=== PATIENT | female | born 1980 | race Caucasian/White ===

== ENCOUNTER 2016-07-06 21:31 | Emergency (ER) | payer OTHER ==
[2016-07-06 21:45] VITALS: BP 150/103; TEMP 97.4; BMI 57.4
[2016-07-06] MEDS ORDERED: DEMEROL 50 MG/ML SYRINGE IM STA (21:57)
[2016-07-06] MEDS ORDERED: ZOFRAN 4 MG/2 ML IM STA (21:57)
[2016-07-06 21:59] LABS: ADD URINE MICROSCOPIC NO; BILIRUBIN,URINE Negative (NEGATIVE); KETONES,URINE Negative (NEGATIVE); LEUKOCYTE ESTERASE ,URINE Negative (NEGATIVE); NITRITE,URINE Negative (NEGATIVE); PROTEIN,URINE Negative (NEGATIVE); URINE PREGNANCY INTERNAL QC INTERNAL QC VALID; URINE, BLOOD Negative (NEGATIVE)
[2016-07-06] MEDS ORDERED: PHENERGAN 25 MG/ML VIAL IM STA (21:59)
--- NOTE | 2016-07-06 21:59 | ED.PDOC ---
General ED Provider: Dr. ADRIENNE KIM Chief Complaint: Abdominal Pain Stated Complaint: Been hurting in right lower belly, nausea, vomited too, has h/ o ovarian cyst. Time Seen by Physician: 21:57 Mode of Arrival: Walk-In Information Source: Patient Nursing and Triage Documentation Reviewed and Agree: Yes GI Complaint Exam - Abdominal Pain Complaint/Exam Onset: Gradual Symptoms Are: Still present Timing: Constant Initial Severity: Moderate Current Severity: Severe Location of Pain: RLQ Character: Reports: Aching, Throbbing Alleviating: Reports: None Associated Signs and Symptoms: Reports: Nausea, Vomiting. Denies: Diaphoresis, Fever, Cough, Chest pain, Dizziness, Back pain, Constipation, Blood in stool, Dysuria, Urinary frequency, Decreased urine output, Decreased appetite, Vaginal bleeding, Vaginal discharge, Diarrhea, Sore throat, Decreased activity Related History: Reports: Similar episode [employer] History: Reports: Ovarian cyst AAA Risk Factors: Reports: None Cardiac Risk Factors: Reports: None Ectopic Risk Factors: Reports: None Ovarian Torsion Risk Factors: Reports: None Surgical Obstruction Risk Factors: Reports: None Related Surgical History: Reports: None Abdominal Findings: Absent: Pulsatile mass, Abdominal distention, Unequal femoral pulses, Rebound tenderness Differential Diagnoses: Renal Colic, Ureteral Stone, Ovarian Cyst Review of Systems - Review Of Systems Constitutional: Reports: No symptoms Eyes: Reports: No symptoms Ears, Nose, Mouth, Throat: Reports: No symptoms Respiratory: Reports: No symptoms Cardiac: Reports: No symptoms GI: Reports: Abdominal pain, Vomiting : Reports: No symptoms Musculoskeletal: Reports: No symptoms Skin: Reports: No symptoms Neurological: Reports: No symptoms Endocrine: Reports: No symptoms Hematologic/Lymphatic: Reports: No symptoms All Other Systems: Reviewed and Negative Past Medical History - Past Medical History Previously Healthy: Yes Endocrine: Reports: None, Other (syncope hypoglycemia vertigo nausea) Cardiovascular: Reports: Hypertension, Unknown (hypoglycemia vertigo nausea), Other (loop recorder placed; syncope ) Respiratory: Reports: Asthma Hematological: Reports: None Gastrointestinal: Reports: None, Pancreatitis Genitourinary: Reports: Kidney stones (9 LITHOTRIPSIES ) Neuro/Psych: Reports: Migraine, Seizure, Anxiety, Depression, Bipolar Disorder Musculoskeletal: Reports: Back Pain Cancer: Reports: None Last Menstrual Period: JUN 23-2016 Other Pertinent Past Medical History: BREAST REDUCTION/THROAT SWELLING WITH MORPHINE ABLE TO TAKE DEMEROL STADOL - Surgical History General Surgical History: Reports: Tubal ligation, Appendectomy, Cholecystectomy , Tonsillectomy, Adenoidectomy, Other (9 LITHOTRIPSIES, BREAST REDUCTION) - Family History Family History: Reports: Unknown - Social History Smoking Status: Current every day smoker, Light tobacco smoker Smoking Cessation Counseling Time: > 3 min - 10 min Hx Substance Use: No Alcohol Screening: None - Immunizations Tetanus Shot up to Date: No Physical Exam - Physical Exam Appearance: Ill-appearing, Obese Pain Distress: Moderate Eyes: JACEK, EOMI, Conjunctiva clear ENT: Ears normal, Nose normal, Oropharynx normal Respiratory: Airway patent, Breath sounds clear, Breath sounds equal, Respirations nonlabored Cardiovascular: RRR, Pulses normal, No rub, No murmur GI/: Soft, Tender Musculoskeletal: Normal strength, ROM intact, No edema, No calf tenderness Skin: Warm, Dry, Normal color Neurological: Sensation intact, Motor intact, Reflexes intact, Cranial nerves intact, Alert, Oriented Psychiatric: Affect appropriate, Mood appropriate Interpretation - Radiology Interpretation Radiology Interpretation By: Radiologist Radiology Results: Positive Exam Interpreted: CT Scan Critical Care Note - Critical Care Note Total Time (mins): 0 Course - Course Orders, Labs, Meds: Lab Review 07/06/16 21:55 Urine Color Yellow Urine Clarity Clear Urine pH 5.0 Ur Specific Trezevant >=1.030 Urine Protein Negative Urine Glucose (UA) 1+ Urine Ketones Negative Urine Blood Negative Urine Nitrite Negative Urine Bilirubin Negative Urine Urobilinogen 0.2 Ur Leukocyte Esterase Negative Urine Test Negative Orders Category Date Time Status URINALYSIS C & S IF INDICATED Stat LAB 07/06/16 21:55 Completed URINE Stat LAB 07/06/16 21:55 Completed Meperidine HCl/Pf [Demerol 50 mg/ml Syringe] MEDS 07/06/16 21:57 Discontinued 50 mg IM ONCE STA Promethazine HCl [Phenergan 25 mg/ml Vial] MEDS 07/06/16 21:59 Discontinued 25 mg IM ONCE STA CT ABDOMEN/PELVIS WO CONTRAST Stat RADS 07/06/16 21:49 Completed Medications Discontinued Medications Generic Name Dose Route Start Last Admin Trade Name Freq PRN Reason Stop Dose Admin Meperidine HCl 50 mg 07/06/16 21:57 07/06/16 22:09 Demerol 50 Mg/Ml Syringe IM 07/06/16 21:58 50 mg ONCE STA Administration Promethazine HCl 25 mg 07/06/16 21:59 07/06/16 22:08 Phenergan 25 Mg/Ml Vial IM 07/06/16 22:00 25 mg ONCE STA Administration Vital Signs: Temp Pulse Resp BP Pulse Ox 07/06/16 21:32 97.4 F L 107 H 24 150/103 H 95 Departure - Departure Time of Disposition: 22:31 Disposition: HOME SELF-CARE Discharge Problem: Abdominal pain, Renal colic on right side Instructions: Renal Colic (ED) Condition: Stable Pt referred to PMD for follow-up: Yes Additional Instructions: INCREASE HYDRATION Continue taking pain medication Allergies/Adverse Reactions: Allergies venom-honey bee [bee venom (honey bee)] Allergy (Severe, Verified 05/29/16 19:57 ) throat swelling venom-wasp [wasp venom] Allergy (Severe, Verified 05/29/16 19:57) throat swelling Iodinated Contrast Media - Oral and [Iodinated Contrast Media - IV Dye] Adverse Reaction (Mild, Verified 07/06/16 21:41) SKIN REDDENED dihydroergotamine Adverse Reaction (Verified 05/29/16 19:57) ketorolac tromethamine [From Toradol] Adverse Reaction (Verified 05/29/16 19:57) morphine Adverse Reaction (Verified 05/29/16 19:57) ondansetron HCl [From Zofran] Adverse Reaction (Verified 05/29/16 19:57) sumatriptan [From Imitrex] Adverse Reaction (Verified 05/29/16 19:57) sumatriptan succinate [From Imitrex] Adverse Reaction (Verified 05/29/16 19:57) onions Allergy (Severe, Uncoded 05/29/16 19:57) swelling of throat Pt notified to get medical alert necklace Home Medications: Ambulatory Orders Pregabalin [Lyrica] 150 mg PO TID 12/07/12 Albuterol Sulfate [Proair Hfa] 2 puff IH Q6H PRN 06/09/14 Buspirone HCl 15 mg PO BID 09/19/14 Fluoxetine HCl [Prozac] 40 mg PO DAILY 09/19/14 Baclofen 10 mg PO TID 07/23/15 Clonazepam [Klonopin] 1 mg PO TID 10/01/15 Oxcarbazepine [Trileptal] 600 mg PO BID 12/23/15 Oxycodone HCl [Oxycodone] 5 mg PO QID 12/23/15 Chlorpromazine HCl [Thorazine] 25 mg PO BEDTIME 01/13/16 Diphenhydramine HCl [Benadryl Allergy] 25 mg PO BEDTIME 01/13/16 Promethazine HCl [Phenergan Tab] 25 mg PO BEDTIME 01/13/16 Disposition Discussed With: Patient, Family
--- NOTE | 2016-07-06 22:29 | CT ---
EXAM: CT of the abdomen and pelvis without contrast. HISTORY: Right lower quadrant pain. PROCEDURE: Contiguous axial CT images of the abdomen and pelvis without contrast with coronal and s agittal reformats. FINDINGS: The liver is normal in appearance. The gallbladder is surgically absent. The pancreas, spleen, adrenal glands and left kidney are normal in appearance. There is a 0.7 cm nonobstructive c alcification in the right kidney. No ureterolithiasis or hydronephrosis. The abdominal aorta is wi thin normal limits in diameter. There are surgical sutures along the margin of the cecum and the a ppendix is not visualized consistent with appendectomy. The other visualized loops of bowel are norm al in appearance. No free fluid or free air in the abdomen or pelvis. The bladder is decompressed. There are bilateral fallopian tube occlusion devices. There is a small umbilical hernia containing only fat. There are degenerative changes in the spine. Impression: Nonobstructive right nephrolithiasis as described. No ureterolithiasis or hydronephros is. Cholecystectomy. Appendectomy. Bilateral fallopian tube occlusion devices. Small umbilical hernia as described.
[2016-07-06] MEDS ORDERED: DILAUDID 2 MG/ML SYRINGE IM STA (22:36)
== END 2016-07-06 23:17 | disposition home or self-care (01) ==
LOC: ED 21:31
DX: N23 Unspecified renal colic (principal); R10.31 Right lower quadrant pain; R11.2 Nausea with vomiting, unspecified; I10 Essential (primary) hypertension; Z87.442 Personal history of urinary calculi; F17.210 Nicotine dependence, cigarettes, uncomplicated; Z79.899 Other long term (current) drug therapy
CPT/HCPCS: 81001; 81025; 96372; 99283

== ENCOUNTER 2016-07-12 21:38 | Emergency (ER) | payer OTHER ==
[2016-07-12 21:41] VITALS: BMI 57.4
[2016-07-12 21:53] VITALS: BP 145/96; TEMP 97.5
[2016-07-12] MEDS ORDERED: SODIUM CHLORIDE 1,000 ML IV STA (21:57)
[2016-07-12] MEDS ORDERED: DILAUDID 1 MG/ML SYRINGE IVP STA ×2 (21:59→23:24)
[2016-07-12] MEDS ORDERED: PHENERGAN 25 MG/ML VIAL 25 MG in SODIUM CHLORIDE 50 ML IV STA (21:59)
[2016-07-12] MEDS ORDERED: PHENERGAN 25 MG/ML VIAL ONE (22:21)
--- NOTE | 2016-07-12 22:55 | CT ---
EXAM: CT head without contrast HISTORY: Knot on right side of head for 1 month with mild headache and pain to the touch of this are a. COMPARISON: CT 03/24/2016 and numerous priors. TECHNIQUE: Serial axial images of the brain were obtained from the skull base to the vertex without IV contrast. FINDINGS: The ventricles, cisterns and sulci are unchanged. The segundo-white matter junction is stab le in comparison to prior. No midline shift or mass is identified. There is no abnormal intra or e xtra-axial fluid collection. The paranasal sinuses redemonstrate nodular low attenuation soft tissu e in the left maxillary sinus and minimal mucosal thickening in the right maxillary sinus. The tanesha ining paranasal sinuses and the mastoid air cells are clear. The osseous calvarium demonstrates a s mall nodular density of the calvarium unchanged from prior exam as seen on image 18. No additional right-sided nodular density is identified. IMPRESSION: 1. No new or acute intracranial abnormality or hemorrhage. There is a small nodular area of the ri ght calvarium superior and posterior to the right ear which has been present since prior examination and is unchanged. No additional nodule is identified. 2. Paranasal sinus mucosal thickening may represent sinusitis versus mucous retention cyst
--- NOTE | 2016-07-12 23:27 | ED.PDOC ---
General ED Provider: Dr. ESME BAUTISTA-ER Chief Complaint: Non-specific Complaint Stated Complaint: ALVARO GOT A HEADACHE--I THINK IT STEMS FROM THIS NOT ON MY SCALP Time Seen by Physician: 21:45 Mode of Arrival: Walk-In Information Source: Patient Exam Limitations: No limitations [facility] Nursing and Triage Documentation Reviewed and Agree: Yes Neurological Complaint Exam - Headache Complaint/Exam Onset: Gradual Duration: several days Symptoms Are: Still present Timing: Constant Episodes Lasting: Days Worst Headache Ever: No Initial Severity: Mild Current Severity: Moderate Location: Right Character: Reports: Dull, Throbbing, Pressure Aggravating: Reports: None Alleviating: Reports: None Associated Signs and Symptoms: Reports: Nausea, Vomiting. Denies: Dizziness, Seizure, Sinus pressure, Fever, Neck pain, Neck stiffness, Decreased LOC, Visual changes Related History: Reports: Similar episode. Denies: Recent trauma, Remote trauma Related Surgical History: Reports: None SAH Risk Factors: Reports: None Meningitis Risk Factors: Reports: None SDH Risk Factors: Reports: None Temporal Arteritis Risk Factors: Reports: Female Normal Head CT Within Last 12 Months: Yes Fundoscopic Exam: Present: Normal Findings Papilledema Present: No Temporal Artery Tenderness: Present: None Sinus Tenderness: Present: None TMJ Tenderness: Present: None Glascow Coma Scale (see protocol): 15 Meningeal Signs Positive: No Pain on Passive Flexion-Positive Kernig's: No ROM Limited In: No Limitiations Focal Weakness: Present: None Focal Sensory Loss: Present: None Gait: Normal Nystagmus Present: No Gag Reflex Present: Yes [id number]: Normal Findings Romberg Test Positive: No Babinski Sign: Negative Right, Negative Left Heel to Toe Normal: Yes Differential Diagnoses: Subdural Hematoma, Sinus Headache Review of Systems - Review Of Systems Constitutional: Reports: No symptoms Eyes: Reports: No symptoms Ears, Nose, Mouth, Throat: Reports: No symptoms Respiratory: Reports: No symptoms Cardiac: Reports: No symptoms GI: Reports: No symptoms : Reports: No symptoms Musculoskeletal: Reports: No symptoms Skin: Reports: No symptoms Neurological: Reports: Headache Endocrine: Reports: No symptoms Hematologic/Lymphatic: Reports: No symptoms All Other Systems: Reviewed and Negative Past Medical History - Past Medical History Previously Healthy: Yes Endocrine: Reports: None, Other (syncope hypoglycemia vertigo nausea) Cardiovascular: Reports: Hypertension, Unknown (hypoglycemia vertigo nausea), Other (loop recorder placed; syncope ) Respiratory: Reports: Asthma Hematological: Reports: None Gastrointestinal: Reports: None, Pancreatitis Genitourinary: Reports: Kidney stones (9 LITHOTRIPSIES ) Neuro/Psych: Reports: Migraine, Seizure, Anxiety, Depression, Bipolar Disorder Musculoskeletal: Reports: Back Pain Cancer: Reports: None Last Menstrual Period: JUN 23 2016 Other Pertinent Past Medical History: BREAST REDUCTION/THROAT SWELLING WITH MORPHINE ABLE TO TAKE DEMEROL STADOL - Surgical History General Surgical History: Reports: Tubal ligation, Appendectomy, Cholecystectomy , Tonsillectomy, Adenoidectomy, Other (9 LITHOTRIPSIES, BREAST REDUCTION) - Family History Family History: Reports: Unknown - Social History Smoking Status: Current every day smoker, Light tobacco smoker Hx Substance Use: No Alcohol Screening: None Lives: With family - Immunizations Tetanus Shot up to Date: No Physical Exam - Physical Exam Appearance: Well-appearing, No pain distress, Well-nourished Eyes: JACEK, EOMI, Conjunctiva clear ENT: Ears normal, Nose normal, Oropharynx normal Neck: Supple Respiratory: Airway patent Cardiovascular: RRR, Pulses normal, No rub, No murmur GI/: Soft, Nontender, No masses, Bowel sounds normal, No Organomegaly Musculoskeletal: Normal strength, ROM intact, No edema, No calf tenderness Skin: Warm, Dry, Normal color Neurological: Sensation intact, Motor intact, Reflexes intact, Cranial nerves intact, Alert, Oriented Psychiatric: Affect appropriate, Mood appropriate Interpretation - Radiology Interpretation Radiology Interpretation By: Radiologist Radiology Results: Negative ("no change") Exam Interpreted: CT Scan Re-Evaluation - Re-Evaluation Time of Re-Evaluation: 23:29 Status: Improved Vital Signs Stable: Yes Pain Level: 0 Appearance: NAD Lungs: Clear Skin: Warm and Dry Neuro: Alert and Oriented X3 CV: RRR Critical Care Note - Critical Care Note Total Time (mins): 0 Course - Course Orders, Labs, Meds: Orders Category Date Time Status ED IV/MEDIPORT/POWERPORT .ONCE EMERGENCY 07/12/16 21:57 Active 0.9 % Sodium Chloride [Saline Flush] MEDS 07/12/16 21:57 Ordered 1 syr IVF PRN PRN Hydromorphone HCl [Dilaudid 1 mg/ml Syringe] MEDS 07/12/16 21:59 Discontinued 1 mg IVP ONCE STA Hydromorphone HCl [Dilaudid 1 mg/ml Syringe] MEDS 07/12/16 23:24 Stat 1 mg IVP ONCE STA Promethazine HCl [Phenergan 25 mg/ml Vial] MEDS 07/12/16 22:21 Discontinued 25 mg .ROUTE .STK-MED ONE Promethazine HCl [Phenergan 25 mg/ml Vial] 25 mg MEDS 07/12/16 21:59 Discontinued 0.9 % Sodium Chloride [Sodium Chloride] 50 ml IV ONCE Sodium Chloride 0.9% [Sodium Chloride] 1,000 ml MEDS 07/12/16 21:[address] HEAD W/O CONTRAST Stat RADS 07/12/16 21:58 Completed Medications Generic Name Dose Route Start Last Admin Trade Name Freq PRN Reason Stop Dose Admin Sodium Chloride 1 syr 07/12/16 21:57 Saline Flush IVF PRN PRN To flush IV Discontinued Medications Generic Name Dose Route Start Last Admin Trade Name Freq PRN Reason Stop Dose Admin Hydromorphone HCl 1 mg 07/12/16 21:59 07/12/16 22:39 Dilaudid 1 Mg/Ml Syringe IVP 07/12/16 22:00 1 mg ONCE STA Administration Sodium Chloride 1,000 mls @ 1,000 mls/hr 07/12/16 21:57 07/12/16 22:40 Sodium Chloride IV 07/12/16 22:56 1,000 mls/hr BOLUS STA Administration Promethazine HCl 25 mg/ Sodium 51 mls @ 75 mls/hr 07/12/16 21:59 07/12/16 22: 39 Chloride IV 07/12/16 22:39 75 mls/hr ONCE STA Administration Vital Signs: Temp Pulse Resp BP Pulse Ox 07/12/16 21:41 97.5 F L 110 H 24 145/96 H 94 L Departure - Departure Time of Disposition: 23:29 Disposition: HOME SELF-CARE Discharge Problem: Lesion of skin of scalp Headache Qualifiers: Headache type: unspecified Headache chronicity pattern: acute headache Intractability: not intractable Qualifier Code: (R51) Headache Instructions: Tension Headache (ED), Acute Headache (ED) Condition: Good Pt referred to PMD for follow-up: Yes Additional Instructions: talk to your pcp about surgical referral to remove scalp mass Allergies/Adverse Reactions: Allergies venom-honey bee [bee venom (honey bee)] Allergy (Severe, Verified 07/12/16 21:51 ) throat swelling venom-wasp [wasp venom] Allergy (Severe, Verified 07/12/16 21:51) throat swelling Iodinated Contrast Media - Oral and [Iodinated Contrast Media - IV Dye] Adverse Reaction (Mild, Verified 07/12/16 21:51) SKIN REDDENED dihydroergotamine Adverse Reaction (Verified 07/12/16 21:51) ketorolac tromethamine [From Toradol] Adverse Reaction (Verified 07/12/16 21:51) morphine Adverse Reaction (Verified 07/12/16 21:51) ondansetron HCl [From Zofran] Adverse Reaction (Verified 07/12/16 21:51) sumatriptan [From Imitrex] Adverse Reaction (Verified 07/12/16 21:51) sumatriptan succinate [From Imitrex] Adverse Reaction (Verified 07/12/16 21:51) onions Allergy (Severe, Uncoded 07/12/16 21:51) swelling of throat Pt notified to get medical alert necklace Home Medications: Ambulatory Orders Pregabalin [Lyrica] 150 mg PO TID 12/07/12 Albuterol Sulfate [Proair Hfa] 2 puff IH Q6H PRN 06/09/14 Buspirone HCl 15 mg PO BID 09/19/14 Fluoxetine HCl [Prozac] 40 mg PO DAILY 09/19/14 Baclofen 10 mg PO TID 07/23/15 Clonazepam [Klonopin] 1 mg PO TID 10/01/15 Oxcarbazepine [Trileptal] 600 mg PO BID 12/23/15 Oxycodone HCl [Oxycodone] 5 mg PO QID 12/23/15 Chlorpromazine HCl [Thorazine] 25 mg PO BEDTIME 01/13/16 Diphenhydramine HCl [Benadryl Allergy] 25 mg PO BEDTIME 01/13/16 Promethazine HCl [Phenergan Tab] 25 mg PO BEDTIME 01/13/16 Disposition Discussed With: Patient, Family
== END 2016-07-13 00:34 | disposition home or self-care (01) ==
LOC: ED 21:38
DX: R51 Headache (principal); L98.9 Disorder of the skin and subcutaneous tissue, unspecified; R11.2 Nausea with vomiting, unspecified; I10 Essential (primary) hypertension; F17.210 Nicotine dependence, cigarettes, uncomplicated; Z79.899 Other long term (current) drug therapy
CPT/HCPCS: 96361; 96365; 96375; 96376; 99283

== ENCOUNTER 2016-07-27 | Emergency (ER) ==
[2016-07-27] MEDS ORDERED: ZOFRAN 4 MG/2 ML IVP STA (00:25)
[2016-07-27] MEDS ORDERED: SODIUM CHLORIDE 1,000 ML IV STA (00:25)
--- NOTE | 2016-07-27 00:30 | ED.PDOC ---
General ED Provider: Dr. FESTUS BLISS Chief Complaint: Seizure Stated Complaint: patient is a 36 year female who has a history of seizures who comes to the ER after she had a seizure break Through falling and hitting her head. She does not remember the seizure. The who is with her now did not wittness it. she states she follows with a Neurologist and her Trilptil was recently doubled. she get seizuire breathrough twice a week. Time Seen by Physician: 00:30 Mode of Arrival: Wheelchair Information Source: Patient, Family Exam Limitations: Other (Postital ) Nursing and Triage Documentation Reviewed and Agree: Yes Neurological Complaint Exam - Seizure Complaint/Exam Onset/Duration: 1 hour ago Symptoms Are: Resolved Single or Multiple Episode: single Failed to Regain Consciousness: No Severity: Self-limited Character: Generalized Aggravating: Denies: Alcohol ingestion, Drug ingestion, Alcohol withdrawal, Drug withdrawal, Fever, Trauma, Sleep deprivation, Medication non-compliance, Photic stimulation, Breath-holding Alleviating: Reports: Spontaneous resolution Associated Signs and Symptoms: Reports: Vomiting Related History: Reports: Similar episode SAH Risk Factors: Reports: None Meningitis Risk Factors: Reports: None SDH Risk Factors: Reports: None Related Surgical History: Reports: None Active Seizure: Other (not witnessed tonight ) Cephalohematoma Present: No Tongue Bitten: No Neck Pain Present: No Glascow Coma Scale (see protocol): 15 Nystagmus Present: No Gag Reflex Present: No Speech: Present: Normal Findings Aphasia: Present: None Meningeal Signs Positive: No Focal Weakness: Present: None Focal Sensory Loss: Reports: None Gait: Unable Pronator Drift: Present: None Romberg Test Positive: No Babinski Sign: Negative Right, Negative Left Heel to Toe Normal: Yes Signs of Injury: Present: Normal findings Differential Diagnoses: Drug Toxicity, Metabolic Disorder, Seizure, Seizure Disorder, Toxic Exposure Review of Systems - Review Of Systems Constitutional: Reports: Malaise, Weakness Eyes: Reports: No symptoms Ears, Nose, Mouth, Throat: Reports: No symptoms Respiratory: Reports: No symptoms Cardiac: Reports: No symptoms GI: Reports: Nausea, Vomiting : Reports: No symptoms Musculoskeletal: Reports: No symptoms Skin: Reports: No symptoms Neurological: Reports: Anxiety, Headache (form the fall ) Endocrine: Reports: No symptoms Hematologic/Lymphatic: Reports: No symptoms All Other Systems: Reviewed and Negative Past Medical History - Past Medical History Previously Healthy: Yes Endocrine: Reports: None, Other (syncope hypoglycemia vertigo nausea) Cardiovascular: Reports: Hypertension, Unknown (hypoglycemia vertigo nausea), Other (loop recorder placed; syncope ) Respiratory: Reports: Asthma Hematological: Reports: None Gastrointestinal: Reports: None, Pancreatitis Genitourinary: Reports: Kidney stones (9 LITHOTRIPSIES ) Neuro/Psych: Reports: Migraine, Seizure, Anxiety, Depression, Bipolar Disorder Musculoskeletal: Reports: Back Pain Cancer: Reports: None Other Pertinent Past Medical History: BREAST REDUCTION/THROAT SWELLING WITH MORPHINE ABLE TO TAKE DEMEROL STADOL - Surgical History General Surgical History: Reports: Tubal ligation, Appendectomy, Cholecystectomy , Tonsillectomy, Adenoidectomy, Other (9 LITHOTRIPSIES, BREAST REDUCTION) - Family History Family History: Reports: Unknown - Social History Smoking Status: Current every day smoker, Light tobacco smoker Hx Substance Use: No Alcohol Screening: None Physical Exam - Physical Exam Appearance: Ill-appearing, Obese Ill-appearing: Mild Pain Distress: Moderate Eyes: JACEK, EOMI, Conjunctiva clear ENT: Ears normal, Nose normal, Oropharynx normal Neck: Supple Respiratory: Airway patent, Breath sounds clear, Breath sounds equal, Respirations nonlabored Cardiovascular: RRR, Pulses normal, No rub, No murmur GI/: Soft, Nontender, No masses, Bowel sounds normal, No Organomegaly Musculoskeletal: Normal strength, ROM intact, No edema, No calf tenderness Skin: Warm, Dry, Normal color Neurological: Sensation intact, Motor intact, Reflexes intact, Cranial nerves intact, Alert, Oriented Psychiatric: Affect appropriate, Mood appropriate Interpretation - Radiology Interpretation Radiology Interpretation By: Radiologist Radiology Results: Negative Exam Interpreted: CT Scan Re-Evaluation - Re-Evaluation Time of Re-Evaluation: 01:00 Vital Signs Stable: Yes (149/95) Critical Care Note - Critical Care Note Total Time (mins): 10 Course - Course Hematology/Chemistry: 07/27/16 01:00 07/27/16 01:00 Orders, Labs, Meds: Lab Review 07/27/16 07/27/16 00:00 01:00 WBC 5.22 RBC 4.63 Hgb 12.7 Hct 39.3 MCV 84.9 MCH 27.4 MCHC 32.3 RDW Coeff of Jeremy 14.6 Plt Count 157 Immature Gran % (Auto) 0.8 Neut % (Auto) 51.8 Lymph % (Auto) 37.7 [place] % (Auto) 5.0 Eos % (Auto) 3.6 Baso % (Auto) 1.1 Immature Gran # (Auto) 0.0 Neut # 2.7 Lymph # 2.0 [place] # 0.3 L Eos # 0.2 Baso # 0.1 Sodium 138 Potassium 4.6 Chloride 102 Carbon Dioxide 24 Anion Gap 16.6 BUN 13 Creatinine 0.96 Estimated GFR (MDRD) 66.00 BUN/Creatinine Ratio 13.54 Glucose 254 H Calcium 9.6 Total Bilirubin 0.28 AST 160 H ALT 128 H Alkaline Phosphatase 120 H Total Protein 7.1 Albumin 3.2 L Globulin 3.9 Albumin/Globulin Ratio 0.82 Serum , Qual Negative Urine Color Yellow Urine Clarity Clear Urine pH 5.5 Ur Specific [place] 1.025 Urine Protein Negative Urine Glucose (UA) 2+ Urine Ketones Negative Urine Blood Negative Urine Nitrite Negative Urine Bilirubin Negative Urine Urobilinogen 0.2 Ur Leukocyte Esterase Negative Orders Category Date Time Status ED IV/MEDIPORT/POWERPORT .ONCE EMERGENCY 07/27/16 00:25 Active CBC W/ AUTO DIFF Stat LAB 07/27/16 01:00 Completed COMPREHENSIVE METABOLIC PANEL Stat LAB 07/27/16 01:00 Completed HCG QUALITATIVE [SERUM ] Stat LAB 07/27/16 00:00 Completed URINALYSIS C & S IF INDICATED Stat LAB 07/27/16 01:00 Completed 0.9 % Sodium Chloride [Saline Flush] MEDS 07/27/16 00:25 Ordered 1 syr IVF PRN PRN Butorphanol Tartrate [Stadol] MEDS 07/27/16 02:24 Discontinued 1 mg IM ONCE STA Promethazine HCl [Phenergan 25 mg/ml Vial] MEDS 07/27/16 00:49 Discontinued 25 mg .ROUTE .STK-MED ONE Promethazine HCl [Phenergan 25 mg/ml Vial] 25 mg MEDS 07/27/16 00:48 Discontinued 0.9 % Sodium Chloride [Sodium Chloride] 50 ml IV ONCE Sodium Chloride 0.9% [Sodium Chloride] 1,000 ml MEDS 07/27/16 00:[address] HEAD W/O CONTRAST Stat RADS 07/27/16 00:05 Completed Medications Generic Name Dose Route Start Last Admin Trade Name Freq PRN Reason Stop Dose Admin Sodium Chloride 1 syr 07/27/16 00:25 07/27/16 01:37 Saline Flush IVF 1 syr PRN PRN Administration To flush IV Discontinued Medications Generic Name Dose Route Start Last Admin Trade Name Yen PRN Reason Stop Dose Admin Butorphanol Tartrate 1 mg 07/27/16 02:24 Stadol IM 07/27/16 02:25 ONCE STA Sodium Chloride 1,000 mls @ 1,000 mls/hr 07/27/16 00:25 07/27/16 01:35 Sodium Chloride IV 07/27/16 01:24 1,000 mls/hr BOLUS STA Administration Promethazine HCl 25 mg/ Sodium 51 mls @ 75 mls/hr 07/27/16 00:48 07/27/16 01: 38 Chloride IV 07/27/16 01:28 75 mls/hr ONCE STA Administration Vital Signs: Temp Pulse Resp BP Pulse Ox 07/27/16 00:31 97.2 F L 110 H 20 173/132 H 94 L Departure - Departure Time of Disposition: 02:11 Disposition: HOME SELF-CARE Discharge Problem: Seizure, Elevated liver enzymes Instructions: Recurrent Seizures in Adults (ED) Condition: Good Pt referred to PMD for follow-up: Yes Additional Instructions: Follow up with Neurology in the Morning for evaluation and medication readjustments Follow up with your PCP for elevated Liver enzymes Allergies/Adverse Reactions: Allergies venom-honey bee [bee venom (honey bee)] Allergy (Severe, Verified 07/27/16 00:37 ) throat swelling venom-wasp [wasp venom] Allergy (Severe, Verified 07/27/16 00:37) throat swelling Iodinated Contrast Media - Oral and [Iodinated Contrast Media - IV Dye] Adverse Reaction (Mild, Verified 07/27/16 00:37) SKIN REDDENED dihydroergotamine Adverse Reaction (Verified 07/27/16 00:37) ketorolac tromethamine [From Toradol] Adverse Reaction (Verified 07/27/16 00:37) morphine Adverse Reaction (Verified 07/27/16 00:37) ondansetron HCl [From Zofran] Adverse Reaction (Verified 07/27/16 00:37) sumatriptan [From Imitrex] Adverse Reaction (Verified 07/27/16 00:37) sumatriptan succinate [From Imitrex] Adverse Reaction (Verified 07/27/16 00:37) onions Allergy (Severe, Uncoded 07/27/16 00:37) swelling of throat Pt notified to get medical alert necklace Home Medications: Ambulatory Orders Pregabalin [Lyrica] 150 mg PO TID 12/07/12 Albuterol Sulfate [Proair Hfa] 2 puff IH Q6H PRN 06/09/14 Buspirone HCl 15 mg PO BID 09/19/14 Fluoxetine HCl [Prozac] 40 mg PO DAILY 09/19/14 Baclofen 10 mg PO TID 07/23/15 Clonazepam [Klonopin] 1 mg PO TID 10/01/15 Oxcarbazepine [Trileptal] 600 mg PO BID 12/23/15 Oxycodone HCl [Oxycodone] 5 mg PO QID 12/23/15 Chlorpromazine HCl [Thorazine] 25 mg PO BEDTIME 01/13/16 Diphenhydramine HCl [Benadryl Allergy] 25 mg PO BEDTIME 01/13/16 Promethazine HCl [Phenergan Tab] 25 mg PO BEDTIME 01/13/16 Disposition Discussed With: Patient, Family
--- NOTE | 2016-07-27 00:30 | CT ---
EXAM: CT brain without contrast HISTORY: Seizure and head injury TECHNIQUE: CT of the brain without intravenous contrast FINDINGS: There is no acute hemorrhage midline shift or mass effect. No hydrocephalus or abnormal extra-axial fluid collection. No significant parenchymal attenuation abnormality. The bony cranium appears normal. Bilateral mucoperiosteal thickening of the maxillary sinuses. Soft tissues without significant abnormality. IMPRESSION: 1. CT of the brain within normal limits.
[2016-07-27 00:36] VITALS: TEMP 97.2; BMI 58.8
[2016-07-27 00:45] LABS: SERUM PREGNANCY INTERNAL QC INTERNAL QC VALID
[2016-07-27] MEDS ORDERED: PHENERGAN 25 MG/ML VIAL 25 MG in SODIUM CHLORIDE 50 ML IV STA (00:48)
[2016-07-27] MEDS ORDERED: PHENERGAN 25 MG/ML VIAL ONE (00:49)
[2016-07-27 01:39] LABS: BILIRUBIN,URINE Negative (NEGATIVE); KETONES,URINE Negative (NEGATIVE); LEUKOCYTE ESTERASE ,URINE Negative (NEGATIVE); NITRITE,URINE Negative (NEGATIVE); PH,URINE 5.5 (5-9); PROTEIN,URINE Negative (NEGATIVE); URINE, BLOOD Negative (NEGATIVE)
[2016-07-27 01:43] LABS: ADD URINE MICROSCOPIC NO; BASOPHILS # (AUTO) 0.1 K/uL (0-0.2); BASOPHILS % (AUTO) 1.1 % (0.0-3.0); EOSINOPHILS # (AUTO) 0.2 K/ul (0.0-0.7); EOSINOPHILS % (AUTO) 3.6 % (0.0-7.0); HEMATOCRIT 39.3 % (37.0-47.0); HEMOGLOBIN 12.7 g/dl (12.0-16.0); IMMATURE GRANULOCYTE % (AUTO) 0.8 % (0.0-5.0); LYMPHOCYTES % (AUTO) 37.7 (10.0-50.0); MEAN CORPUSCULAR HEMOGLOBIN 27.4 pg (27.0-31.0); MEAN CORPUSCULAR HGB CONC 32.3 (31.8-35.4); MEAN CORPUSCULAR VOLUME 84.9 fl (81.0-99.0); MONOCYTES # (AUTO) 0.3 K/uL (0.4-2.0); NEUTROPHILS # (AUTO) 2.7 K/ul (2.0-6.9); NEUTROPHILS % (AUTO) 51.8; PLATELET COUNT 157 10^3/uL (140-440); RED BLOOD COUNT 4.63 10^6/ul (4.20-5.40); WHITE BLOOD COUNT 5.22 K/ul (4.6-10.2)
[2016-07-27 01:59] LABS: ALBUMIN 3.2 g/dL (3.4-5.0); ALBUMIN/GLOBULIN RATIO 0.82; ANION GAP 16.6; BILIRUBIN,TOTAL 0.28 mg/dL (0.00-1.20); BUN/CREATININE RATIO 13.54; CALCIUM 9.6 mg/dL (8.2-10.2); CREATININE 0.96 mg/dL (0.60-1.30); POTASSIUM 4.6 mmol/L (3.5-5.10); TOTAL PROTEIN 7.1 g/dL (6.4-8.2)
[2016-07-27] MEDS ORDERED: STADOL IM STA (02:24)
[2016-07-27 03:00] VITALS: BP 132/84
== END 2016-07-27 03:18 | disposition home or self-care (01) ==
LOC: ED
DX: R56.9 Unspecified convulsions (principal); R74.8 Abnormal levels of other serum enzymes; S09.90XA Unspecified injury of head, initial encounter; I10 Essential (primary) hypertension; R51 Headache; R11.2 Nausea with vomiting, unspecified; R53.1 Weakness; Z79.899 Other long term (current) drug therapy; F17.210 Nicotine dependence, cigarettes, uncomplicated; W19.XXXA Unspecified fall, initial encounter
CPT/HCPCS: 36415; 80053; 81001; 84703; 85025; 96361; 96365; 96372; 96375; 99283

== ENCOUNTER 2016-08-28 08:53 | Outpatient (CLI) ==
[2012-12-08 12:43] VITALS: TEMP 97.6
--- NOTE | 2016-08-28 09:49 | DI ---
Examination: Five radiographic images of the lumbar spine. Comparison: 07/21/2013. Reason for study: Disc degeneration. FINDINGS: The no acute fracture or listhesis. The vertebral bodies and intervertebral body disc sp [place] are unchanged. There is mild straightening of the lumbar lordotic curve. Surgical clip s are seen within the right upper quadrant. Fallopian tube occlusion device is are seen on the infe rior images. Impression: No acute fracture or listhesis in the lumbar spine.
--- NOTE | 2016-08-28 10:35 | DI ---
EXAM: Six views of the cervical spine HISTORY: Degenerative disease of the cervical spine. COMPARISON: The CT cervical spine 07/23/2015 FINDINGS: There is mild straightening of the cervical spine. There is no acute compression fracture or subluxation. There is disc space narrowing at C5-C6 with small anterior disc osteophyte. The f acets and posterior processes are normal. The neural foramen appear patent. The odontoid process i s unremarkable. IMPRESSION: Mild degenerative change noted C5-C6 with no acute compression fracture or subluxation.
== END 2016-08-28 08:54 | disposition home or self-care (01) ==
LOC: RAD 08:53
PROVIDERS: ATTEND Pain Medicine Interventional Pain Medicine
DX: M50.320 Other cervical disc degeneration, mid-cervical region, unspecified level (principal); M47.812 Spondylosis without myelopathy or radiculopathy, cervical region; M51.36 Other intervertebral disc degeneration, lumbar region; M51.37 Other intervertebral disc degeneration, lumbosacral region

== ENCOUNTER 2016-09-05 22:45 | Emergency (ER) ==
[2016-09-05 22:46] VITALS: BMI 58.8
[2016-09-05 22:56] VITALS: BP 134/90; TEMP 97.9
--- NOTE | 2016-09-05 23:24 | ED.PDOC ---
General ED Provider: Dr. FESTUS BLISS Chief Complaint: Seizure Stated Complaint: Patient is a 36 year old female who comes to the ER with complaints of a seizure this morning and 3 seizures since 8 pm tonight. She also states that she vomited and had diarrhea x 10 since this Morning. She states that her medications si still being changed. Time Seen by Physician: 23:19 Mode of Arrival: Wheelchair Information Source: Patient Exam Limitations: No limitations Primary Care Provider: STANLEY CABRERA Nursing and Triage Documentation Reviewed and Agree: Yes Neurological Complaint Exam - Seizure Complaint/Exam Onset/Duration: 1 day Symptoms Are: Resolved Timing: Intermittent Episodes Lasting: Minutes (3) Single or Multiple Episode: x 4 Failed to Regain Consciousness: No Severity: Self-limited Location: Partial extremities Character: Generalized Aggravating: Reports: None Alleviating: Reports: Spontaneous resolution Associated Signs and Symptoms: Reports: Illness, Vomiting Related History: Reports: Similar episode SAH Risk Factors: Reports: None Meningitis Risk Factors: Reports: None SDH Risk Factors: Reports: None Carotid Bruit Present: No Cephalohematoma Present: No Tongue Bitten: No Neck Pain Present: No Glascow Coma Scale (see protocol): 15 Nystagmus Present: No Gag Reflex Present: No Speech: Present: Normal Findings Aphasia: Present: None Focal Weakness: Present: None Focal Sensory Loss: Reports: None Gait: Normal [id number]: Normal Findings Romberg Test Positive: Yes Babinski Sign: Negative Right, Negative Left Heel to Toe Normal: Yes Signs of Injury: Present: Normal findings Differential Diagnoses: Metabolic Disorder, Seizure Review of Systems - Review Of Systems Constitutional: Reports: Weakness GI: Reports: Diarrhea, Nausea, Poor fluid intake, Vomiting Neurological: Reports: Headache, Weakness All Other Systems: Reviewed and Negative Past Medical History - Past Medical History Previously Healthy: Yes Endocrine: Reports: None, Other (syncope hypoglycemia vertigo nausea) Cardiovascular: Reports: Hypertension, Unknown (hypoglycemia vertigo nausea), Other (loop recorder placed; syncope ) Respiratory: Reports: Asthma Hematological: Reports: None Gastrointestinal: Reports: None, Pancreatitis Genitourinary: Reports: Kidney stones (9 LITHOTRIPSIES ) Neuro/Psych: Reports: Migraine, Seizure, Anxiety, Depression, Bipolar Disorder Musculoskeletal: Reports: Back Pain Cancer: Reports: None Last Menstrual Period: AUGUST 21 2016 Other Pertinent Past Medical History: BREAST REDUCTION/THROAT SWELLING WITH MORPHINE ABLE TO TAKE DEMEROL STADOL - Surgical History General Surgical History: Reports: Tubal ligation, Appendectomy, Cholecystectomy , Tonsillectomy, Adenoidectomy, Other (9 LITHOTRIPSIES, BREAST REDUCTION) - Family History Family History: Reports: Unknown - Social History Smoking Status: Current every day smoker, Light tobacco smoker Hx Substance Use: No Alcohol Screening: None - Immunizations Tetanus Shot up to Date: No Physical Exam - Physical Exam Appearance: Ill-appearing Ill-appearing: Mild Pain Distress: Moderate Eyes: JACEK, EOMI, Conjunctiva clear ENT: Ears normal, Nose normal, Oropharynx normal Neck: Supple Respiratory: Airway patent, Breath sounds clear, Breath sounds equal, Respirations nonlabored Cardiovascular: RRR, Pulses normal, No rub, No murmur GI/: Soft, Nontender, No masses, Bowel sounds normal, No Organomegaly Musculoskeletal: Normal strength, ROM intact, No edema, No calf tenderness Skin: Warm, Dry, Normal color Neurological: Alert, Oriented Psychiatric: Anxious Re-Evaluation - Re-Evaluation Time of Re-Evaluation: 01:53 (no more seizures) Status: Improved Critical Care Note - Critical Care Note Total Time (mins): 0 Course - Course Hematology/Chemistry: 09/05/16 23:30 09/05/16 23:30 Orders, Labs, Meds: Lab Review 09/05/16 09/05/16 09/06/16 23:30 23:45 00:01 WBC 4.14 L RBC 4.54 Hgb 12.4 Hct 38.3 MCV 84.4 MCH 27.3 MCHC 32.4 RDW Coeff of [place] 14.1 Plt Count 142 Immature Gran % (Auto) 0.2 Neut % (Auto) 51.2 Lymph % (Auto) 40.1 [place] % (Auto) 5.3 Eos % (Auto) 2.7 Baso % (Auto) 0.5 Immature Gran # (Auto) 0.0 Neut # 2.1 Lymph # 1.7 [place] # 0.2 L Eos # 0.1 Baso # 0.0 Sodium 136 Potassium 4.2 Chloride 101 Carbon Dioxide 28 Anion Gap 11.2 BUN 10 Creatinine 0.96 Estimated GFR (MDRD) 66.00 BUN/Creatinine Ratio 10.41 Glucose 513 H* Calcium 9.2 Total Bilirubin 0.26 AST 142 H ALT 124 H Alkaline Phosphatase 128 H Total Protein 6.6 Albumin 3.1 L Globulin 3.5 Albumin/Globulin Ratio 0.89 Urine Color Yellow Urine Clarity Clear Urine pH 5.5 Ur Specific [place] 1.010 Urine Protein Negative Urine Glucose (UA) 2+ Urine Ketones Negative Urine Blood 1+ Urine Nitrite Negative Urine Bilirubin Negative Urine Urobilinogen 0.2 Ur Leukocyte Esterase Negative Urine Microscopic RBC 2-5 Ur Squamous Epith Cells 30-50 Urine Bacteria 1+ Urine Yeast Trace Urine Test Negative Urine Opiates Screen Negative Ur Oxycodone Screen Positive Urine Methadone Screen Negative Ur Propoxyphene Screen Negative Ur Barbiturates Screen Negative U Tricyclic Antidepress Negative Ur Phencyclidine Scrn Negative Ur Amphetamine Screen Negative U Methamphetamines Scrn Negative U Benzodiazepines Scrn Negative Urine Cocaine Screen Negative U Cannabinoids Screen Negative Orders Category Date Time Status ACCUCHECK (ED) [ED ACCUCHECK ASSESSMENT] .ONCE EMERGENCY 09/06/16 02:24 Active ED IV/MEDIPORT/POWERPORT .ONCE EMERGENCY 09/05/16 23:24 Active CBC W/ AUTO DIFF Stat LAB 09/05/16 23:30 Completed COMPREHENSIVE METABOLIC PANEL Stat LAB 09/05/16 23:30 Completed DRUG SCREEN, URINE, RAPID Stat LAB 09/05/16 23:45 Completed URINALYSIS C & S IF INDICATED Stat LAB 09/06/16 00:01 Completed URINE Stat LAB 09/06/16 00:01 Completed 0.9 % Sodium Chloride [Saline Flush] MEDS 09/05/16 23:25 Discontinued 1 syr IVF PRN PRN Acetaminophen [Tylenol] MEDS 09/06/16 01:52 Discontinued 1,000 mg PO ONCE STA Metoclopramide HCl [Reglan] MEDS 09/05/16 23:29 Discontinued 5 mg IVP ONCE STA Sodium Chloride 0.9% [Sodium Chloride] 1,000 ml MEDS 09/05/16 23:55 Discontinued IV BOLUS Sodium Chloride 0.9% [Sodium Chloride] 1,000 ml MEDS 09/06/16 00:16 Discontinued IV BOLUS Medications Discontinued Medications Generic Name Dose Route Start Last Admin Trade Name Freq PRN Reason Stop Dose Admin Acetaminophen 1,000 mg 09/06/16 01:52 09/06/16 02:07 Tylenol PO 09/06/16 01:53 1,000 mg ONCE STA Administration Sodium Chloride 1,000 mls @ 1,000 mls/hr 09/05/16 23:55 09/05/16 23:55 Sodium Chloride IV 09/06/16 00:54 1,000 mls/hr BOLUS STA Administration Sodium Chloride 1,000 mls @ 1,000 mls/hr 09/06/16 00:16 09/06/16 00:58 Sodium Chloride IV 09/06/16 01:15 1,000 mls/hr BOLUS STA Administration Metoclopramide HCl 5 mg 09/05/16 23:29 09/05/16 23:57 Reglan IVP 09/05/16 23:30 5 mg ONCE STA Administration Sodium Chloride 1 syr 09/05/16 23:25 09/06/16 00:03 Saline Flush IVF 1 syr PRN PRN Administration To flush IV Vital Signs: Temp Pulse Resp BP Pulse Ox 09/05/16 22:46 97.9 F 102 H 20 134/90 93 L Departure - Departure Time of Disposition: 01:53 Disposition: HOME SELF-CARE Discharge Problem: Seizure, Hyperglycemia, Gastroenteritis Instructions: Epilepsy (ED), Hyperglycemia, Non-Diabetic (ED) Condition: Good Pt referred to PMD for follow-up: Yes Additional Instructions: Avoid sugary foods and too many carbohydrates. Follow up with your doctor to address high blood glucose. Allergies/Adverse Reactions: Allergies venom-honey bee [bee venom (honey bee)] Allergy (Severe, Verified 09/05/16 22:57 ) throat swelling venom-wasp [wasp venom] Allergy (Severe, Verified 09/05/16 22:57) throat swelling Iodinated Contrast Media - Oral and [Iodinated Contrast Media - IV Dye] Adverse Reaction (Mild, Verified 09/05/16 22:57) SKIN REDDENED dihydroergotamine Adverse Reaction (Verified 09/05/16 22:57) ketorolac tromethamine [From Toradol] Adverse Reaction (Verified 09/05/16 22:57) morphine Adverse Reaction (Verified 09/05/16 22:57) ondansetron HCl [From Zofran] Adverse Reaction (Verified 09/05/16 22:57) sumatriptan [From Imitrex] Adverse Reaction (Verified 09/05/16 22:57) sumatriptan succinate [From Imitrex] Adverse Reaction (Verified 09/05/16 22:57) onions Allergy (Severe, Uncoded 09/05/16 22:57) swelling of throat Pt notified to get medical alert necklace Home Medications: Ambulatory Orders Pregabalin [Lyrica] 150 mg PO TID 12/07/12 Albuterol Sulfate [Proair Hfa] 2 puff IH Q6H PRN 06/09/14 Buspirone HCl 15 mg PO BID 09/19/14 Fluoxetine HCl [Prozac] 40 mg PO DAILY 09/19/14 Baclofen 10 mg PO TID 07/23/15 Clonazepam [Klonopin] 1 mg PO TID 10/01/15 Oxcarbazepine [Trileptal] 600 mg PO BID 12/23/15 Oxycodone HCl [Oxycodone] 5 mg PO QID 12/23/15 Chlorpromazine HCl [Thorazine] 25 mg PO BEDTIME 01/13/16 Diphenhydramine HCl [Benadryl Allergy] 25 mg PO BEDTIME 01/13/16 Promethazine HCl [Phenergan Tab] 25 mg PO BEDTIME 01/13/16 Disposition Discussed With: Patient, Family
[2016-09-05] MEDS ORDERED: ZOFRAN 4 MG/2 ML IVP STA (23:25)
[2016-09-05] MEDS ORDERED: REGLAN IVP STA (23:29)
[2016-09-05 23:48] LABS: BASOPHILS % (AUTO) 0.5 % (0.0-3.0); EOSINOPHILS # (AUTO) 0.1 K/ul (0.0-0.7); EOSINOPHILS % (AUTO) 2.7 % (0.0-7.0); HEMATOCRIT 38.3 % (37.0-47.0); HEMOGLOBIN 12.4 g/dl (12.0-16.0); IMMATURE GRANULOCYTE % (AUTO) 0.2 % (0.0-5.0); LYMPHOCYTES # (AUTO) 1.7 K/uL (0.60-3.4); LYMPHOCYTES % (AUTO) 40.1 (10.0-50.0); MEAN CORPUSCULAR HEMOGLOBIN 27.3 pg (27.0-31.0); MEAN CORPUSCULAR HGB CONC 32.4 (31.8-35.4); MEAN CORPUSCULAR VOLUME 84.4 fl (81.0-99.0); MONOCYTES # (AUTO) 0.2 K/uL (0.4-2.0); MONOCYTES % (AUTO) 5.3 (0-10); NEUTROPHILS # (AUTO) 2.1 K/ul (2.0-6.9); NEUTROPHILS % (AUTO) 51.2; PLATELET COUNT 142 10^3/uL (140-440); RED BLOOD COUNT 4.54 10^6/ul (4.20-5.40); WHITE BLOOD COUNT 4.14 K/ul (4.6-10.2)
[2016-09-05] MEDS ORDERED: SODIUM CHLORIDE 1,000 ML IV STA (23:55)
[2016-09-06 00:09] LABS: ALBUMIN 3.1 g/dL (3.4-5.0); ALBUMIN/GLOBULIN RATIO 0.89; ANION GAP 11.2; BILIRUBIN,TOTAL 0.26 mg/dL (0.00-1.20); BUN/CREATININE RATIO 10.41; CALCIUM 9.2 mg/dL (8.2-10.2); CREATININE 0.96 mg/dL (0.60-1.30); POTASSIUM 4.2 mmol/L (3.5-5.10); TOTAL PROTEIN 6.6 g/dL (6.4-8.2)
[2016-09-06 00:12] LABS: URINE PREGNANCY INTERNAL QC INTERNAL QC VALID
[2016-09-06] MEDS ORDERED: HUMULIN R SUBCUT STA (00:16)
[2016-09-06] MEDS ORDERED: SODIUM CHLORIDE 1,000 ML IV STA (00:16)
[2016-09-06 00:21] LABS: COCAIN SCREEN,URINE NEGATIVE (NEGATIVE)
[2016-09-06] MEDS ORDERED: TYLENOL PO STA (01:52)
[2016-09-06 05:43] LABS: PH,URINE 5.5 (5-9); PROTEIN,URINE NEGATIVE (NEGATIVE)
[2016-09-06 05:44] LABS: ADD URINE MICROSCOPIC YES; BILIRUBIN,URINE NEGATIVE (NEGATIVE); KETONES,URINE NEGATIVE (NEGATIVE); LEUKOCYTE ESTERASE ,URINE NEGATIVE (NEGATIVE); NITRITE,URINE NEGATIVE (NEGATIVE); URINE, BLOOD 1+ (NEGATIVE)
[2016-09-06 05:45] LABS: BACTERIA,URINE 1+ (NOT PRESENT)
== END 2016-09-06 03:21 | disposition home or self-care (01) ==
LOC: ED 22:45
DX: R56.9 Unspecified convulsions (principal); K52.9 Noninfective gastroenteritis and colitis, unspecified; R73.9 Hyperglycemia, unspecified; R51 Headache; R53.1 Weakness; F17.210 Nicotine dependence, cigarettes, uncomplicated; Z79.899 Other long term (current) drug therapy
CPT/HCPCS: 36415; 80053; 80306; 81001; 81025; 82962; 85025; 96361; 96374; 99283

== ENCOUNTER 2016-10-03 21:29 | Emergency (ER) ==
[2016-10-03 21:36] VITALS: BP 99/62; TEMP 97.9; BMI 60.2
[2016-10-03] MEDS ORDERED: DEMEROL 50 MG/ML SYRINGE IM STA (21:53)
[2016-10-03] MEDS ORDERED: ZOFRAN 4 MG/2 ML IM STA (21:53)
--- NOTE | 2016-10-03 21:58 | ED.PDOC ---
General ED Provider: Dr. ADRIENNE KIM Chief Complaint: Abdominal Pain Stated Complaint: Been hurting in the right side abdomen, has h/o renal stones. Time Seen by Physician: 21:56 Mode of Arrival: Walk-In Information Source: Patient Primary Care Provider: STANLEY CABRERA Nursing and Triage Documentation Reviewed and Agree: Yes GI Complaint Exam - Abdominal Pain Complaint/Exam Onset: Gradual Symptoms Are: Still present Timing: Constant Initial Severity: Moderate Current Severity: Severe Location of Pain: RLQ Radiates To: Reports: Back, Flank Character: Reports: Dull, Aching Aggravating: Reports: None Alleviating: Reports: None Associated Signs and Symptoms: Reports: Back pain. Denies: Diaphoresis, Fever, Cough, Chest pain, Dizziness, Constipation, Blood in stool, Dysuria, Urinary frequency, Decreased urine output, Decreased appetite, Vaginal bleeding, Vaginal discharge, Nausea, Vomiting, Diarrhea, Sore throat, Decreased activity AAA Risk Factors: Reports: None Cardiac Risk Factors: Reports: None Ectopic Risk Factors: Reports: None Ovarian Torsion Risk Factors: Reports: None Surgical Obstruction Risk Factors: Reports: None Related Surgical History: Reports: None Abdominal Findings: Absent: Pulsatile mass, Rebound tenderness Differential Diagnoses: Renal Colic, Ureteral Stone Review of Systems - Review Of Systems Constitutional: Reports: No symptoms Eyes: Reports: No symptoms Ears, Nose, Mouth, Throat: Reports: No symptoms Respiratory: Reports: No symptoms Cardiac: Reports: No symptoms GI: Reports: Abdominal pain : Reports: No symptoms Musculoskeletal: Reports: No symptoms Skin: Reports: No symptoms Neurological: Reports: No symptoms Endocrine: Reports: No symptoms Hematologic/Lymphatic: Reports: No symptoms All Other Systems: Reviewed and Negative Past Medical History - Past Medical History Previously Healthy: Yes Endocrine: Reports: None, Other (syncope hypoglycemia vertigo nausea) Cardiovascular: Reports: Hypertension, Unknown (hypoglycemia vertigo nausea), Other (loop recorder placed; syncope ) Respiratory: Reports: Asthma Hematological: Reports: None Gastrointestinal: Reports: None, Pancreatitis Genitourinary: Reports: Kidney stones (9 LITHOTRIPSIES ) Neuro/Psych: Reports: Migraine, Seizure, Anxiety, Depression, Bipolar Disorder Musculoskeletal: Reports: Back Pain Cancer: Reports: None Last Menstrual Period: SEPTEMBER 22 2016 Other Pertinent Past Medical History: BREAST REDUCTION/THROAT SWELLING WITH MORPHINE ABLE TO TAKE DEMEROL STADOL - Surgical History General Surgical History: Reports: Tubal ligation, Appendectomy, Cholecystectomy , Tonsillectomy, Adenoidectomy, Other (9 LITHOTRIPSIES, BREAST REDUCTION) - Family History Family History: Reports: Unknown - Social History Smoking Status: Current every day smoker, Light tobacco smoker Smoking Cessation Counseling Time: > 3 min - 10 min Hx Substance Use: No Alcohol Screening: None - Immunizations Tetanus Shot up to Date: No Physical Exam - Physical Exam Appearance: Well-appearing, Obese Pain Distress: Moderate Eyes: JACEK, EOMI, Conjunctiva clear ENT: Ears normal, Nose normal, Oropharynx normal Respiratory: Airway patent, Breath sounds clear, Breath sounds equal, Respirations nonlabored Cardiovascular: RRR, Pulses normal, No rub, No murmur GI/: Tender Musculoskeletal: Normal strength, ROM intact, No edema, No calf tenderness Skin: Warm, Dry, Normal color Neurological: Sensation intact, Motor intact, Reflexes intact, Cranial nerves intact, Alert, Oriented Psychiatric: Affect appropriate, Mood appropriate Interpretation - Radiology Interpretation Radiology Interpretation By: Radiologist Radiology Results: Negative Exam Interpreted: CT Scan Critical Care Note - Critical Care Note Total Time (mins): 0 Course - Course Orders, Labs, Meds: Lab Review 10/03/16 21:50 Urine Color Yellow Urine Clarity Clear Urine pH 5.5 Ur Specific [place] <=1.005 Urine Protein Negative Urine Glucose (UA) 2+ Urine Ketones Negative Urine Blood Trace-intact Urine Nitrite Negative Urine Bilirubin Negative Urine Urobilinogen 0.2 Ur Leukocyte Esterase Negative Urine Microscopic RBC 5-10 Ur Squamous Epith Cells Tntc Urine Bacteria 1+ Urine Yeast Trace Urine Test Negative Orders Category Date Time Status URINALYSIS C & S IF INDICATED Stat LAB 10/03/16 21:50 Completed URINE Stat LAB 10/03/16 21:50 Completed Meperidine HCl/Pf [Demerol 50 mg/ml Syringe] MEDS 10/03/16 21:53 Discontinued 50 mg IM ONCE STA CT ABDOMEN/PELVIS WO CONTRAST Stat RADS 10/03/16 21:53 Completed Medications Discontinued Medications Generic Name Dose Route Start Last Admin Trade Name Freq PRN Reason Stop Dose Admin Meperidine HCl 50 mg 10/03/16 21:53 10/03/16 22:10 Demerol 50 Mg/Ml Syringe IM 10/03/16 21:54 50 mg ONCE STA Administration Vital Signs: Temp Pulse Resp BP Pulse Ox 10/03/16 21:30 97.9 F 119 H 32 H 99/62 91 L Departure - Departure Time of Disposition: 23:03 Disposition: HOME SELF-CARE Discharge Problem: Abdominal pain Instructions: Abdominal Pain (ED) Condition: Stable Pt referred to PMD for follow-up: Yes Additional Instructions: INCREASE HYDRATION F/U WITH pmd Allergies/Adverse Reactions: Allergies venom-honey bee [bee venom (honey bee)] Allergy (Severe, Verified 10/03/16 21:37 ) throat swelling venom-wasp [wasp venom] Allergy (Severe, Verified 10/03/16 21:37) throat swelling Iodinated Contrast Media - Oral and [Iodinated Contrast Media - IV Dye] Adverse Reaction (Mild, Verified 10/03/16 21:37) SKIN REDDENED dihydroergotamine Adverse Reaction (Verified 10/03/16 21:37) ketorolac tromethamine [From Toradol] Adverse Reaction (Verified 10/03/16 21:37) morphine Adverse Reaction (Verified 10/03/16 21:37) ondansetron HCl [From Zofran] Adverse Reaction (Verified 10/03/16 21:37) sumatriptan [From Imitrex] Adverse Reaction (Verified 10/03/16 21:37) sumatriptan succinate [From Imitrex] Adverse Reaction (Verified 10/03/16 21:37) onions Allergy (Severe, Uncoded 10/03/16 21:37) swelling of throat Pt notified to get medical alert necklace Home Medications: Ambulatory Orders Pregabalin [Lyrica] 150 mg PO TID 12/07/12 Albuterol Sulfate [Proair Hfa] 2 puff IH Q6H PRN 06/09/14 Buspirone HCl 15 mg PO BID 09/19/14 Fluoxetine HCl [Prozac] 40 mg PO DAILY 09/19/14 Baclofen 10 mg PO TID 07/23/15 Clonazepam [Klonopin] 1 mg PO BID 10/01/15 Oxcarbazepine [Trileptal] 600 mg PO BID 12/23/15 Oxycodone HCl [Oxycodone] 5 mg PO QID 12/23/15 Chlorpromazine HCl [Thorazine] 25 mg PO BEDTIME 01/13/16 Diphenhydramine HCl [Benadryl Allergy] 25 mg PO BEDTIME 01/13/16 Promethazine HCl [Phenergan Tab] 25 mg PO BEDTIME 01/13/16 Disposition Discussed With: Patient, Family
[2016-10-03 22:04] LABS: BILIRUBIN,URINE Negative (NEGATIVE); KETONES,URINE Negative (NEGATIVE); LEUKOCYTE ESTERASE ,URINE Negative (NEGATIVE); NITRITE,URINE Negative (NEGATIVE); PH,URINE 5.5 (5-9); PROTEIN,URINE Negative (NEGATIVE); URINE, BLOOD Trace-intact (NEGATIVE)
[2016-10-03 22:06] LABS: URINE PREGNANCY INTERNAL QC INTERNAL QC VALID
[2016-10-03 22:26] LABS: ADD URINE MICROSCOPIC YES
[2016-10-03 22:27] LABS: BACTERIA,URINE 1+ (NOT PRESENT)
--- NOTE | 2016-10-03 22:59 | CT ---
EXAM: CT abdomen pelvis without intravenous contrast 10/03/2016. Sagittal and coronal reformatted images obtained HISTORY: Right flank pain COMPARISON: 07/06/2016 FINDINGS: The liver, adrenal glands, kidneys, spleen, pancreas and urinary bladder show no acute ab normality. The gallbladder and appendix have been removed. Bilateral fallopian tube occlusion hector matthew are in place. No free air or free fluid. Nonobstructive stone in the lower pole of the right kidney appears stable. This measures approximat beverly 7 mm diameter. IMPRESSION: 1. No urinary or bowel obstruction. 2. Status post cholecystectomy and appendectomy. 3. Nonobstructive right-sided nephrolithiasis. 4. No acute inflammatory process identified within the abdomen or pelvis within the limitation of a noncontrast enhanced examination.
== END 2016-10-03 23:09 | disposition home or self-care (01) ==
LOC: ED 21:29
DX: R10.31 Right lower quadrant pain (principal); M54.9 Dorsalgia, unspecified; Z87.442 Personal history of urinary calculi; F17.210 Nicotine dependence, cigarettes, uncomplicated; Z79.899 Other long term (current) drug therapy
CPT/HCPCS: 81001; 81025; 96372; 99283

== ENCOUNTER 2016-11-01 16:10 | Outpatient (CLI) | payer OTHER ==
[2012-12-08 12:43] VITALS: TEMP 97.6
[2016-11-01 17:48] LABS: ALBUMIN 3.8 g/dL (3.4-5.0); ALBUMIN/GLOBULIN RATIO 0.95; ANION GAP 16.1; BILIRUBIN,TOTAL 0.5 mg/dL (0.00-1.20); BUN/CREATININE RATIO 8.65; CREATININE 1.04 mg/dL (0.60-1.30); POTASSIUM 4.1 mmol/L (3.5-5.10); TOTAL PROTEIN 7.8 g/dL (6.4-8.2)
== END 2016-11-01 16:11 | disposition home or self-care (01) ==
LOC: LAB 16:10
PROVIDERS: ATTEND Nurse Practitioner Family
DX: R73.9 Hyperglycemia, unspecified (principal); I10 Essential (primary) hypertension
CPT/HCPCS: 36415; 80053; 83036

== ENCOUNTER 2016-12-14 22:44 | Emergency (ER) ==
[2016-12-14 22:55] VITALS: BP 180/95; TEMP 98.1; BMI 53.1
--- NOTE | 2016-12-14 23:34 | CT ---
EXAM: CT brain without contrast HISTORY: Head injury and pain TECHNIQUE: CT of the brain without intravenous contrast FINDINGS: There is no acute hemorrhage midline shift or mass effect. No hydrocephalus or abnormal extra-axial fluid collection. No significant parenchymal attenuation abnormality. The bony cranium appears normal. The visualized paranasal sinuses are clear. Soft tissues without significant abnorm ality. IMPRESSION: 1. CT of the brain within normal limits.
--- NOTE | 2016-12-14 23:37 | CT ---
EXAM: CT cervical spine without intravenous contrast 12/14/2016. Sagittal and coronal reformatted images obtained HISTORY: Head injury COMPARISON: 07/23/2015 FINDINGS: Straightening of the normal cervical lordosis. Severely degraded anatomic detail seconda ry to body habitus. There is no displaced fracture identified. The facet joints align normally. The prevertebral soft tissues appear within normal limits. IMPRESSION: 1. Anatomic alignment is stable. 2. Limited osseous detail secondary to body habitus. A subtle nondisplaced fracture could be obscu red. 3. Within the limitation there is no acute osseous abnormality identified within the cervical spine . Further evaluation should be obtained as clinically indicated.
--- NOTE | 2016-12-14 23:42 | ED.PDOC ---
General ED Provider: Dr. ESME BAUTISTA-ER Chief Complaint: Fall Stated Complaint: i have had seizures now for a year--i see dr perez--i was told if i ever hit my head to go to the er Time Seen by Physician: 23:41 Mode of Arrival: Walk-In Information Source: Patient Exam Limitations: No limitations Primary Care Provider: STANLEY CABRERA Nursing and Triage Documentation Reviewed and Agree: Yes Neurological Complaint Exam - Seizure Complaint/Exam Onset/Duration: several hours ago Symptoms Are: Resolved Single or Multiple Episode: 1 Failed to Regain Consciousness: No Severity: Self-limited Location: All extremities Character: Generalized, Tonic-clonic Aggravating: Reports: None Alleviating: Reports: None Associated Signs and Symptoms: Reports: Trauma. Denies: Anxiety, Emotional distress, Impaired speech, Bladder incontinence, Bowel incontinence, Illness, Vomiting, Lethargy, Apnea SAH Risk Factors: Reports: None Meningitis Risk Factors: Reports: None SDH Risk Factors: Reports: None Related Surgical History: Reports: None Active Seizure: Tonic-clonic Carotid Bruit Present: No Cephalohematoma Present: No Tongue Bitten: No Glascow Coma Scale (see protocol): 15 Nystagmus Present: No Gag Reflex Present: No Speech: Present: Normal Findings Meningeal Signs Positive: No Focal Weakness: Present: None Focal Sensory Loss: Reports: None Gait: Normal [id number]: Normal Findings Pronator Drift: Present: None Romberg Test Positive: No Babinski Sign: Negative Right, Negative Left Heel to Toe Normal: Yes Signs of Injury: Present: Normal findings Differential Diagnoses: Seizure Review of Systems - Review Of Systems Constitutional: Reports: No symptoms Eyes: Reports: No symptoms Ears, Nose, Mouth, Throat: Reports: No symptoms Respiratory: Reports: No symptoms Cardiac: Reports: No symptoms GI: Reports: No symptoms : Reports: No symptoms Musculoskeletal: Reports: No symptoms Skin: Reports: No symptoms Neurological: Reports: No symptoms Endocrine: Reports: No symptoms Hematologic/Lymphatic: Reports: No symptoms All Other Systems: Reviewed and Negative Past Medical History - Past Medical History Previously Healthy: Yes Endocrine: Reports: None, Other (syncope hypoglycemia vertigo nausea) Cardiovascular: Reports: Hypertension, Unknown (hypoglycemia vertigo nausea), Other (loop recorder placed; syncope ) Respiratory: Reports: Asthma Hematological: Reports: None Gastrointestinal: Reports: None, Pancreatitis Genitourinary: Reports: Kidney stones (9 LITHOTRIPSIES ) Neuro/Psych: Reports: Migraine, Seizure, Anxiety, Depression, Bipolar Disorder Musculoskeletal: Reports: Back Pain Cancer: Reports: None Last Menstrual Period: 11/21/16 Other Pertinent Past Medical History: BREAST REDUCTION/THROAT SWELLING WITH MORPHINE ABLE TO TAKE DEMEROL STADOL - Surgical History General Surgical History: Reports: Tubal ligation, Appendectomy, Cholecystectomy , Tonsillectomy, Adenoidectomy, Other (9 LITHOTRIPSIES, BREAST REDUCTION) - Family History Family History: Reports: Unknown - Social History Smoking Status: Current every day smoker, Light tobacco smoker Hx Substance Use: No Alcohol Screening: None Lives: With family - Immunizations Tetanus Shot up to Date: No Physical Exam - Physical Exam Appearance: Well-appearing, No pain distress, Well-nourished Eyes: JACEK, EOMI, Conjunctiva clear ENT: Ears normal, Nose normal, Oropharynx normal Neck: Supple Respiratory: Airway patent, Breath sounds clear, Breath sounds equal, Respirations nonlabored Cardiovascular: RRR, Pulses normal, No rub, No murmur GI/: Soft, Nontender, No masses, Bowel sounds normal, No Organomegaly Musculoskeletal: Normal strength, ROM intact, No edema, No calf tenderness Skin: Warm Neurological: Sensation intact, Motor intact, Reflexes intact, Cranial nerves intact, Alert, Oriented Psychiatric: Affect appropriate, Mood appropriate Interpretation - Radiology Interpretation Radiology Interpretation By: Radiologist Radiology Results: Negative Exam Interpreted: CT Scan Re-Evaluation - Re-Evaluation Time of Re-Evaluation: 23:48 Status: Unchanged Vital Signs Stable: Yes Pain Level: 0 Appearance: NAD Lungs: Clear Skin: Warm and Dry Neuro: Alert and Oriented X3 CV: RRR Critical Care Note - Critical Care Note Total Time (mins): 0 Course - Course Orders, Labs, Meds: Orders Category Date Time Status CT CERVICAL SPINE W/O CONTRAST Stat RADS 12/14/16 23:[address] HEAD W/O CONTRAST Stat RADS 12/14/16 23:09 Completed Vital Signs: Temp Pulse Resp BP Pulse Ox 12/14/16 22:47 98.1 F 99 H 20 180/95 H 94 L Departure - Departure Time of Disposition: 23:49 Disposition: HOME SELF-CARE Discharge Problem: Injury of head Qualifiers: Encounter type: initial encounter Qualifier Code: (S09.90XA) Unspecified injury of head, initial encounter Instructions: Head Injury (ED), Concussion (ED) Condition: Good Pt referred to PMD for follow-up: Yes Additional Instructions: continue seizure meds--head injury instructions--f/u with dr perez Allergies/Adverse Reactions: Allergies venom-honey bee [bee venom (honey bee)] Allergy (Severe, Verified 12/14/16 22:55 ) throat swelling venom-wasp [wasp venom] Allergy (Severe, Verified 12/14/16 22:55) throat swelling Iodinated Contrast- Oral and IV Dye [Iodinated Contrast Media - IV Dye] Adverse Reaction (Mild, Verified 12/14/16 22:55) SKIN REDDENED dihydroergotamine Adverse Reaction (Verified 12/14/16 22:55) ketorolac tromethamine [From Toradol] Adverse Reaction (Verified 12/14/16 22:55) morphine Adverse Reaction (Verified 12/14/16 22:55) ondansetron HCl [From Zofran] Adverse Reaction (Verified 12/14/16 22:55) sumatriptan [From Imitrex] Adverse Reaction (Verified 12/14/16 22:55) sumatriptan succinate [From Imitrex] Adverse Reaction (Verified 12/14/16 22:55) onions Allergy (Severe, Uncoded 12/14/16 22:55) swelling of throat Pt notified to get medical alert necklace Home Medications: Ambulatory Orders Pregabalin [Lyrica] 150 mg PO TID 12/07/12 Albuterol Sulfate [Proair Hfa] 2 puff IH Q6H PRN 06/09/14 Buspirone HCl 15 mg PO BID 09/19/14 Fluoxetine HCl [Prozac] 40 mg PO DAILY 09/19/14 Baclofen 10 mg PO TID 07/23/15 Oxcarbazepine [Trileptal] 600 mg PO BID 12/23/15 Oxycodone HCl [Oxycodone] 5 mg PO QID 12/23/15 Chlorpromazine HCl [Thorazine] 25 mg PO BEDTIME 01/13/16 Diphenhydramine HCl [Benadryl Allergy] 25 mg PO BEDTIME 01/13/16 Promethazine HCl [Phenergan Tab] 25 mg PO BEDTIME 01/13/16 Epinephrine [Epinephrine 1:10,000 Syringe] 0.1 mg IJ PRN 11/01/16 Disposition Discussed With: Patient, Family
== END 2016-12-15 00:35 | disposition home or self-care (01) ==
LOC: ED 22:44
DX: S09.90XA Unspecified injury of head, initial encounter (principal); R56.9 Unspecified convulsions; W19.XXXA Unspecified fall, initial encounter; I10 Essential (primary) hypertension; Z79.899 Other long term (current) drug therapy; F17.210 Nicotine dependence, cigarettes, uncomplicated
CPT/HCPCS: 99284

== ENCOUNTER 2017-02-07 21:19 | Emergency (ER) | payer OTHER ==
[2017-02-07 21:29] VITALS: BP 125/90; TEMP 98.4; BMI 53.8
[2017-02-07] MEDS ORDERED: SODIUM CHLORIDE 1,000 ML IV STA (21:42)
--- NOTE | 2017-02-07 21:46 | ED.PDOC ---
General ED Provider: Dr. FESTUS BLISS Chief Complaint: Back Pain Stated Complaint: Patient is a 36 year old female who has a history of kidney stone. Started having dull pain to right lower back, which has radiated around to the right groin area and is sharp pain now. Also complains of having urinary frequency but has not noticed blood in the urine. Did report emesis x3 in the last hour. Time Seen by Physician: 21:41 Mode of Arrival: Walk-In Information Source: Patient Exam Limitations: No limitations [facility] Nursing and Triage Documentation Reviewed and Agree: Yes Review of Systems - Review Of Systems Constitutional: Reports: No symptoms Eyes: Reports: No symptoms Ears, Nose, Mouth, Throat: Reports: No symptoms Respiratory: Reports: No symptoms Cardiac: Reports: No symptoms GI: Reports: Nausea, Poor appetite, Vomiting : Reports: No symptoms Musculoskeletal: Reports: Back pain Skin: Reports: No symptoms Neurological: Reports: No symptoms Endocrine: Reports: No symptoms Hematologic/Lymphatic: Reports: No symptoms All Other Systems: Reviewed and Negative Past Medical History - Past Medical History Previously Healthy: Yes Endocrine: Reports: None, Other (syncope hypoglycemia vertigo nausea) Cardiovascular: Reports: Hypertension, Other (loop recorder placed; syncope , hypoglycemia vertigo nausea) Respiratory: Reports: Asthma Hematological: Reports: None Gastrointestinal: Reports: None, Pancreatitis Genitourinary: Reports: Kidney stones (9 LITHOTRIPSIES ) Neuro/Psych: Reports: Migraine, Seizure, Anxiety, Depression, Bipolar Disorder Musculoskeletal: Reports: Back Pain Cancer: Reports: None Last Menstrual Period: 817 Other Pertinent Past Medical History: BREAST REDUCTION/THROAT SWELLING WITH MORPHINE ABLE TO TAKE DEMEROL STADOL - Surgical History General Surgical History: Reports: Tubal ligation, Appendectomy, Cholecystectomy , Tonsillectomy, Adenoidectomy, Other (9 LITHOTRIPSIES, BREAST REDUCTION) - Family History Family History: Reports: Unknown - Social History Smoking Status: Current every day smoker, Light tobacco smoker Hx Substance Use: No Alcohol Screening: None - Immunizations Tetanus Shot up to Date: Yes Physical Exam - Physical Exam Appearance: Ill-appearing, Well-nourished, Obese Ill-appearing: Moderate Pain Distress: Severe Eyes: JACEK, EOMI, Conjunctiva clear Neck: Supple Respiratory: Airway patent, Breath sounds clear, Breath sounds equal, Respirations nonlabored Cardiovascular: RRR, Pulses normal, No rub, No murmur GI/: Soft (obese ), Nontender, No masses, Bowel sounds normal, No Organomegaly Musculoskeletal: Normal strength, ROM intact, No edema, No calf tenderness Skin: Warm, Dry, Normal color Neurological: Sensation intact, Motor intact, Alert, Oriented Psychiatric: Affect appropriate, Mood appropriate Interpretation - Radiology Interpretation Radiology Interpretation By: Radiologist Radiology Results: Negative Exam Interpreted: CT Scan (abdomen and pelvis, non obstructing stone. ) Re-Evaluation - Re-Evaluation Time of Re-Evaluation: 22:50 Status: Improved Vital Signs Stable: Yes Pain Level: better Critical Care Note - Critical Care Note Total Time (mins): 35 Course - Course Hematology/Chemistry: 02/07/17 21:50 02/07/17 21:50 Orders, Labs, Meds: Lab Review 02/07/17 21:50 WBC 6.88 RBC 4.56 Hgb 13.4 Hct 39.3 MCV 86.2 MCH 29.4 MCHC 34.1 RDW Coeff of Jeremy 14.8 Plt Count 199 Immature Gran % (Auto) 0.1 Neut % (Auto) 58.3 Lymph % (Auto) 35.0 [place] % (Auto) 3.9 Eos % (Auto) 2.3 Baso % (Auto) 0.4 Immature Gran # (Auto) 0.0 Neut # 4.0 Lymph # 2.4 [place] # 0.3 L Eos # 0.2 Baso # 0.0 Sodium 138 Potassium 3.9 Chloride 101 Carbon Dioxide 25 Anion Gap 15.9 BUN 12 Creatinine 0.79 Estimated GFR (MDRD) 83.00 BUN/Creatinine Ratio 15.18 Glucose 197 H Calcium 9.9 Total Bilirubin 0.29 AST 49 H ALT 73 Alkaline Phosphatase 113 H Total Protein 7.3 Albumin 3.3 L Globulin 4.0 Albumin/Globulin Ratio 0.83 Amylase 28 Lipase 25 Serum , Qual Negative Urine Color Yellow Urine Clarity Clear Urine pH 6.0 Ur Specific [place] >=1.030 Urine Protein Negative Urine Glucose (UA) Negative Urine Ketones Trace Urine Blood Trace-intact Urine Nitrite Negative Urine Bilirubin Negative Urine Urobilinogen 0.2 Ur Leukocyte Esterase Negative Urine Microscopic RBC 2-5 Ur Squamous Epith Cells 20-30 Urine Bacteria 2+ Orders Category Date Time Status ED IV/MEDIPORT/POWERPORT .ONCE EMERGENCY 02/07/17 21:42 Active AMYLASE Stat LAB 02/07/17 21:50 Completed CBC W/ AUTO DIFF Stat LAB 02/07/17 21:50 Completed COMPREHENSIVE METABOLIC PANEL Stat LAB 02/07/17 21:50 Completed LIPASE Stat LAB 02/07/17 21:50 Completed SERUM Stat LAB 02/07/17 21:50 Completed UA [URINALYSIS C & S IF INDICATED] Stat LAB 02/07/17 21:50 Completed URINE CULTURE Routine LAB 02/07/17 22:10 Received 0.9 % Sodium Chloride [Saline Flush] MEDS 02/07/17 21:43 Ordered 1 syr IVF PRN PRN Hydromorphone HCl [Dilaudid 1 mg/ml Syringe] MEDS 02/07/17 22:29 Discontinued 1 mg IVP ONCE STA Promethazine HCl [Phenergan 25 mg/ml Vial] 25 mg MEDS 02/07/17 22:29 Active 0.9 % Sodium Chloride [Sodium Chloride] 50 ml IV ONCE Sodium Chloride 0.9% [Sodium Chloride] 1,000 ml MEDS 02/07/17 21:[address] ABD/PEL WO RENAL STONE PROT Stat RADS 02/07/17 21:45 Ordered Medications Generic Name Dose Route Start Last Admin Trade Name Freq PRN Reason Stop Dose Admin Sodium Chloride 1,000 mls @ 1,000 mls/hr 02/07/17 21:42 02/07/17 22:03 Sodium Chloride IV 02/07/17 22:41 1,000 mls/hr BOLUS STA Administration Promethazine HCl 25 mg/ Sodium 51 mls @ 75 mls/hr 02/07/17 22:29 Chloride IV 02/07/17 23:09 ONCE STA Sodium Chloride 1 syr 02/07/17 21:43 02/07/17 22:03 Saline Flush IVF 1 syr PRN PRN Administration To flush IV Discontinued Medications Generic Name Dose Route Start Last Admin Trade Name Freq PRN Reason Stop Dose Admin Hydromorphone HCl 1 mg 02/07/17 22:29 Dilaudid 1 Mg/Ml Syringe IVP 02/07/17 22:30 ONCE STA Vital Signs: Temp Pulse Resp BP Pulse Ox 02/07/17 21:20 98.4 F 109 H 24 125/90 94 L Departure - Departure Time of Disposition: 22:50 Disposition: HOME SELF-CARE Discharge Problem: Backache UTI (urinary tract infection) Qualifiers: Urinary tract infection type: acute cystitis Hematuria presence: without hematuria Qualifier Code: (N30.00) Acute cystitis without hematuria Instructions: Urinary Tract Infection in Women (ED) Condition: Stable Pt referred to PMD for follow-up: Yes Additional Instructions: Push fluids take medications as prescribed Follow up with PCP in 3 days continue home pain mediations Prescriptions: Nitrofurantoin Macrocrystal [Nitrofurantoin] 100 mg PO BID #14 capsule Allergies/Adverse Reactions: Allergies venom-honey bee [bee venom (honey bee)] Allergy (Severe, Verified 02/07/17 21:27 ) throat swelling venom-wasp [wasp venom] Allergy (Severe, Verified 02/07/17 21:27) throat swelling Iodinated Contrast- Oral and IV Dye [Iodinated Contrast Media - IV Dye] Adverse Reaction (Mild, Verified 02/07/17 21:27) SKIN REDDENED dihydroergotamine Adverse Reaction (Verified 02/07/17 21:27) ketorolac tromethamine [From Toradol] Adverse Reaction (Verified 02/07/17 21:27) morphine Adverse Reaction (Verified 02/07/17 21:27) ondansetron HCl [From Zofran] Adverse Reaction (Verified 02/07/17 21:27) sumatriptan [From Imitrex] Adverse Reaction (Verified 02/07/17 21:27) sumatriptan succinate [From Imitrex] Adverse Reaction (Verified 02/07/17 21:27) onions Allergy (Severe, Uncoded 02/07/17 21:27) swelling of throat Pt notified to get medical alert necklace Home Medications: Ambulatory Orders Pregabalin [Lyrica] 150 mg PO TID 12/07/12 Albuterol Sulfate [Proair Hfa] 2 puff IH Q6H PRN 06/09/14 Buspirone HCl 15 mg PO BID 09/19/14 Fluoxetine HCl [Prozac] 40 mg PO DAILY 09/19/14 Baclofen 10 mg PO TID 07/23/15 Oxcarbazepine [Trileptal] 600 mg PO BID 12/23/15 Oxycodone HCl [Oxycodone] 5 mg PO QID 12/23/15 Chlorpromazine HCl [Thorazine] 25 mg PO BEDTIME 01/13/16 Diphenhydramine HCl [Benadryl Allergy] 25 mg PO BEDTIME 01/13/16 Promethazine HCl [Phenergan Tab] 25 mg PO BEDTIME 01/13/16 Metoclopramide HCl [Reglan] 10 mg PO BID 02/07/17 Nitrofurantoin Macrocrystal [Nitrofurantoin] 100 mg PO BID #14 capsule 02/07/17 Disposition Discussed With: Patient, Family
[2017-02-07 21:55] LABS: BASOPHILS % (AUTO) 0.4 % (0.0-3.0); EOSINOPHILS # (AUTO) 0.2 K/ul (0.0-0.7); EOSINOPHILS % (AUTO) 2.3 % (0.0-7.0); HEMATOCRIT 39.3 % (37.0-47.0); HEMOGLOBIN 13.4 g/dl (12.0-16.0); IMMATURE GRANULOCYTE % (AUTO) 0.1 % (0.0-5.0); LYMPHOCYTES # (AUTO) 2.4 K/uL (0.60-3.4); MEAN CORPUSCULAR HEMOGLOBIN 29.4 pg (27.0-31.0); MEAN CORPUSCULAR HGB CONC 34.1 (31.8-35.4); MEAN CORPUSCULAR VOLUME 86.2 fl (81.0-99.0); MONOCYTES # (AUTO) 0.3 K/uL (0.4-2.0); MONOCYTES % (AUTO) 3.9 (0-10); NEUTROPHILS % (AUTO) 58.3; PLATELET COUNT 199 10^3/uL (140-440); RED BLOOD COUNT 4.56 10^6/ul (4.20-5.40); WHITE BLOOD COUNT 6.88 K/ul (4.6-10.2)
[2017-02-07 21:58] LABS: ADD URINE MICROSCOPIC YES; BILIRUBIN,URINE Negative (NEGATIVE); KETONES,URINE Trace (NEGATIVE); LEUKOCYTE ESTERASE ,URINE Negative (NEGATIVE); NITRITE,URINE Negative (NEGATIVE); PROTEIN,URINE Negative (NEGATIVE); URINE, BLOOD Trace-intact (NEGATIVE)
[2017-02-07 22:10] LABS: BACTERIA,URINE 2+ (NOT PRESENT)
[2017-02-07 22:12] LABS: SERUM PREGNANCY INTERNAL QC INTERNAL QC VALID
[2017-02-07 22:15] LABS: ALBUMIN 3.3 g/dL (3.4-5.0); ALBUMIN/GLOBULIN RATIO 0.83; ANION GAP 15.9; BILIRUBIN,TOTAL 0.29 mg/dL (0.00-1.20); BUN/CREATININE RATIO 15.18; CALCIUM 9.9 mg/dL (8.2-10.2); CREATININE 0.79 mg/dL (0.60-1.30); POTASSIUM 3.9 mmol/L (3.5-5.10); TOTAL PROTEIN 7.3 g/dL (6.4-8.2)
[2017-02-07] MEDS ORDERED: DILAUDID 1 MG/ML SYRINGE IVP STA (22:29)
[2017-02-07] MEDS ORDERED: PHENERGAN 25 MG/ML VIAL 25 MG in SODIUM CHLORIDE 50 ML IV STA (22:29)
[2017-02-07] MEDS ORDERED: PHENERGAN 25 MG/ML VIAL ONE (22:32)
--- NOTE | 2017-02-07 22:44 | CT ---
EXAM: CT abdomen pelvis without intravenous contrast 02/07/2017. Sagittal and coronal reformatted images obtained HISTORY: Kidney stones. Back and flank pain COMPARISON: 10/03/2016 FINDINGS: The liver shows no acute abnormality. Gallbladder has been removed. The adrenal glands and kidneys show no acute abdomen. No hydronephrosis. Nonobstructive nephrolithiasis at the lower pole of the right kidney. This measures 4 mm diameter. The spleen and pancreas show no acute process. There is no bowel obstruction. The appendix has bee n removed. Urinary bladder is decompressed. No free air or free fluid. No acute osseous abnormality. IMPRESSION: 1. No urinary or bowel obstruction. 2. Nonobstructive right-sided nephrolithiasis 3. No acute inflammatory process identified within the abdomen or pelvis within the limitation of a noncontrast enhanced examination.
[2017-02-07] MEDS ORDERED: MACROBID PO STA (22:49)
== END 2017-02-07 23:34 | disposition home or self-care (01) ==
LOC: ED 21:19
DX: N30.00 Acute cystitis without hematuria (principal); Z87.442 Personal history of urinary calculi; F17.210 Nicotine dependence, cigarettes, uncomplicated; Z79.899 Other long term (current) drug therapy
CPT/HCPCS: 36415; 74176; 80053; 81001; 82150; 83690; 84703; 85025; 87086; 96365; 96375; 99283

== ENCOUNTER 2017-06-26 08:26 | Outpatient (CLI) ==
[2012-12-08 12:43] VITALS: TEMP 97.6
== END 2017-06-26 08:27 | disposition home or self-care (01) ==
LOC: LAB 08:26
PROVIDERS: ATTEND Nurse Practitioner Family
DX: R74.8 Abnormal levels of other serum enzymes (principal); R74.0 Nonspecific elevation of levels of transaminase and lactic acid dehydrogenase [LDH]; M25.50 Pain in unspecified joint; E66.01 Morbid (severe) obesity due to excess calories; I10 Essential (primary) hypertension; E11.9 Type 2 diabetes mellitus without complications
CPT/HCPCS: 36415; 80053; 80061; 80074; 82977; 83036; 84443; 85025; 85651; 86038; 86430

== ENCOUNTER 2017-07-01 07:56 | Outpatient (CLI) | payer OTHER ==
[2012-12-08 12:43] VITALS: TEMP 97.6
--- NOTE | 2017-07-01 09:08 | US ---
EXAM: ULTRASOUND ABDOMEN LIMITED HISTORY: Abnormal blood chemistry report FINDINGS: Ultrasound abdomen, limited. Otero-scale ultrasound and color Doppler was performed. Live r size was measured at 22 cm, enlarged. The liver parenchyma demonstrated diffuse increased sound at tenuation suggesting steatosis. No focal hepatic lesion or evidence of intrahepatic biliary dilatatio n was identified. The main portal vein is patent and hepatopedal. The gallbladder has been removed. The common bile duct diameter was within normal limits at 0.53 cm. The pancreas was poorly seen. No ascites identified. IMPRESSION: 1. Enlarged fatty liver. 2. Post cholecystectomy state with normal common bile duct caliber. 3. Unable to adequately seen pancreas.
== END 2017-07-01 07:57 | disposition home or self-care (01) ==
LOC: RAD 07:56
PROVIDERS: ATTEND Nurse Practitioner Family
DX: R74.8 Abnormal levels of other serum enzymes (principal); R79.89 Other specified abnormal findings of blood chemistry; E66.01 Morbid (severe) obesity due to excess calories

== ENCOUNTER 2017-12-30 14:16 | Outpatient (CLI) ==
[2012-12-08 12:43] VITALS: TEMP 97.6
== END 2017-12-30 14:17 | disposition home or self-care (01) ==
LOC: RHC-LAB 14:16
PROVIDERS: ATTEND Nurse Practitioner Family
DX: E11.9 Type 2 diabetes mellitus without complications (principal); I10 Essential (primary) hypertension
CPT/HCPCS: 36415; 80053; 80061; 83037; 85025

== ENCOUNTER 2018-02-24 12:47 | Outpatient (CLI) | payer OTHER ==
[2012-12-08 12:43] VITALS: TEMP 97.6
== END 2018-02-24 12:48 | disposition home or self-care (01) ==
LOC: RHC-LAB 12:47
PROVIDERS: ATTEND Nurse Practitioner Family
DX: E78.5 Hyperlipidemia, unspecified (principal); E78.1 Pure hyperglyceridemia
CPT/HCPCS: 36415; 80053; 80061

== ENCOUNTER 2018-05-03 16:50 | Emergency (ER) | payer OTHER ==
[2018-05-03 16:55] VITALS: BP 141/78; TEMP 97.9; BMI 49.5
[2018-05-03] MEDS ORDERED: SODIUM CHLORIDE 1,000 ML IV STA (17:17)
[2018-05-03] MEDS ORDERED: TORADOL IM STA (17:17)
[2018-05-03] MEDS ORDERED: ZOFRAN 4 MG/2 ML IVP STA (17:17)
--- NOTE | 2018-05-03 17:20 | ED.PDOC ---
General ED Provider: Dr. ESME ANDRADE Chief Complaint: Abdominal Pain Stated Complaint: Abdominal and Rt Flank Pain. Rt Lower Lumbar spine Pain. Nausea and Vomiting/Diarrhea. Hx Kidney stones and Pancreatitis Time Seen by Physician: 17:05 Mode of Arrival: Walk-In Information Source: Patient Exam Limitations: No limitations [facility] Nursing and Triage Documentation Reviewed and Agree: Yes Does patient meet sepsis criteria?: No System Inflammatory Response Syndrome: Pulse >90 BPM, Not Applicable Sepsis Protocol: For patient's 13 years and over: Temp is 96.8 and below OR 101 and greater Pulse >90 BPM Resp >20/minute Acutely Altered Mental Status Are patient's symptoms suggestive of a new infection, such as: -Pneumonia -Skin, Soft Tissue -Endocarditis -UTI -Bone, Joint Infection -Implantable Device -Acute Abdominal Infection -Wound Infection -Meningitis -Blood Stream Catheter Infection -Unknown Complaint Exam - Complaint/Exam Patient Complains of: Reports: Pain (RT fLANK pain associated N-V), Dysuria Symptoms Are: Still present (slightly improved) Initial Severity: Moderate Current Severity: Mild Location of Pain: Reports: Right, Flank, Radiating (Rt lower abdomen) Character: Reports: Colicky, Cramping, Dark urine Aggravating: Reports: Movement Alleviating: Reports: Position Associated Signs and Symptoms: Reports: Back pain, Hematuria, Appetite change, Increased urine frequency, Abdominal Pain Ectopic Risk Factors: Reports: Maternal age >30 Ovarian Torsion Risk Factors: Reports: None Surgical Obstruction Risk Factors: Reports: None Abdominal Findings: Present: None, CVA Tenderness (rt). Absent: Pulsatile mass , Abdominal distention, Unequal femoral pulses, Rebound tenderness, Peritoneal signs, McBurney's Point tender, Hernia Review of Systems - Review Of Systems Constitutional: Reports: No symptoms Eyes: Reports: No symptoms Ears, Nose, Mouth, Throat: Reports: No symptoms Respiratory: Reports: No symptoms Cardiac: Reports: No symptoms GI: Reports: Abdominal pain, Vomiting : Reports: Flank pain Musculoskeletal: Reports: No symptoms Skin: Reports: No symptoms Neurological: Reports: No symptoms Endocrine: Reports: No symptoms Hematologic/Lymphatic: Reports: No symptoms All Other Systems: Reviewed and Negative Past Medical History - Past Medical History Previously Healthy: Yes Endocrine: Reports: None, Other (syncope hypoglycemia vertigo nausea) Cardiovascular: Reports: Hypertension, Other (loop recorder placed; syncope , hypoglycemia vertigo nausea) Respiratory: Reports: Asthma Hematological: Reports: None Gastrointestinal: Reports: None, Pancreatitis Genitourinary: Reports: Kidney stones (9 LITHOTRIPSIES ) Neuro/Psych: Reports: Migraine, Seizure, Anxiety, Depression, Bipolar Disorder Musculoskeletal: Reports: Back Pain Cancer: Reports: None Last Menstrual Period: apr 24, 2018 Other Pertinent Past Medical History: BREAST REDUCTION/THROAT SWELLING WITH MORPHINE ABLE TO TAKE DEMEROL STADOL - Surgical History General Surgical History: Reports: Tubal ligation, Appendectomy, Cholecystectomy , Tonsillectomy, Adenoidectomy, Other (9 LITHOTRIPSIES, BREAST REDUCTION) - Family History Family History: Reports: Unknown - Social History Smoking Status: Current every day smoker, Heavy tobacco smoker Hx Substance Use: No Alcohol Screening: None Physical Exam - Physical Exam Appearance: Well-appearing, No pain distress, Well-nourished Eyes: JACEK, EOMI, Conjunctiva clear ENT: Ears normal, Nose normal, Oropharynx normal Respiratory: Airway patent, Breath sounds clear, Breath sounds equal, Respirations nonlabored Cardiovascular: RRR, Pulses normal, No rub, No murmur GI/: Soft, Nontender, No masses, Bowel sounds normal, No Organomegaly Musculoskeletal: Normal strength, ROM intact, No edema, No calf tenderness, Limited ROM (lumbar spinal tenderness and mm spasm) Skin: Warm, Dry, Normal color Neurological: Sensation intact, Motor intact, Reflexes intact, Cranial nerves intact, Alert, Oriented Psychiatric: Affect appropriate, Mood appropriate Interpretation - Radiology Interpretation Radiology Interpretation By: Radiologist Exam Interpreted: CT Scan (8m stone rt renal pelvis; no hydronephrosis) Critical Care Note - Critical Care Note Total Time (mins): 30 Course - Course Hematology/Chemistry: 05/03/18 17:27 05/03/18 17:27 Orders, Labs, Meds: Lab Review 05/03/18 05/03/18 05/03/18 17:27 17:27 17:27 WBC 6.77 RBC 4.36 Hgb 12.4 Hct 37.7 MCV 86.5 MCH 28.4 MCHC 32.9 RDW Coeff of Jeremy 14.0 Plt Count 195 Immature Gran % (Auto) 0.3 Neut % (Auto) 53.0 Lymph % (Auto) 39.0 [place] % (Auto) 4.6 Eos % (Auto) 2.5 Baso % (Auto) 0.6 Immature Gran # (Auto) 0.0 Neut # (Auto) 3.6 Lymph # (Auto) 2.6 [place] # (Auto) 0.3 L Eos # (Auto) 0.2 Baso # (Auto) 0.0 Sodium 137.1 Potassium 4.03 Chloride 103.2 Carbon Dioxide 27.3 Anion Gap 10.63 BUN 10.6 Creatinine 0.74 Estimated GFR (MDRD) 88.00 BUN/Creatinine Ratio 14.32 Glucose 181.1 H Calcium 9.67 Magnesium Total Bilirubin 0.32 AST 75.5 H ALT 79.1 H Alkaline Phosphatase 115.6 Total Protein 7.44 Albumin 4.18 Globulin 3.26 Albumin/Globulin Ratio 1.28 Lipase 136.7 Urine Color Urine Clarity Urine pH Ur Specific [place] Urine Protein Urine Glucose (UA) Urine Ketones Urine Blood Urine Nitrite Urine Bilirubin Urine Urobilinogen Ur Leukocyte Esterase Urine Microscopic RBC Urine Microscopic WBC Ur Squamous Epith Cells Urine Bacteria Urine Mucus Urine Test 05/03/18 05/03/18 05/03/18 17:27 17:27 17:27 WBC RBC Hgb Hct MCV MCH MCHC RDW Coeff of Jeremy Plt Count Immature Gran % (Auto) Neut % (Auto) Lymph % (Auto) [place] % (Auto) Eos % (Auto) Baso % (Auto) Immature Gran # (Auto) Neut # (Auto) Lymph # (Auto) [place] # (Auto) Eos # (Auto) Baso # (Auto) Sodium Potassium Chloride Carbon Dioxide Anion Gap BUN Creatinine Estimated GFR (MDRD) BUN/Creatinine Ratio Glucose Calcium Magnesium 1.81 Total Bilirubin AST ALT Alkaline Phosphatase Total Protein Albumin Globulin Albumin/Globulin Ratio Lipase Urine Color Yellow Urine Clarity Clear Urine pH 5.5 Ur Specific [place] >=1.030 Urine Protein Trace Urine Glucose (UA) Negative Urine Ketones Trace Urine Blood 2+ Urine Nitrite Negative Urine Bilirubin Negative Urine Urobilinogen 0.2 Ur Leukocyte Esterase Negative Urine Microscopic RBC 20-30 Urine Microscopic WBC 2-5 Ur Squamous Epith Cells 20-30 Urine Bacteria 1+ Urine Mucus 1+ Urine Test Negative Orders Category Date Time Status EKG-(ED ONLY) Stat CARDIO 05/03/18 17:14 Completed NPO REMINDER: IMAGING ONCE CARE 05/03/18 17:14 Completed IV [ED IV/MEDIPORT/POWERPORT] .ONCE EMERGENCY 05/03/18 17:14 Active CBC W/ AUTO DIFF Stat LAB 05/03/18 17:27 Completed CMP [COMPREHENSIVE METABOLIC PANEL] Stat LAB 05/03/18 17:27 Completed LIPASE Stat LAB 05/03/18 17:27 Completed MAGNESIUM Stat LAB 05/03/18 17:27 Completed UA [URINALYSIS C & S IF INDICATED] Stat LAB 05/03/18 17:27 Completed URINE CULTURE Stat LAB 05/03/18 17:27 Completed URINE Stat LAB 05/03/18 17:27 Completed 0.9 % Sodium Chloride [Saline Flush] MEDS 05/03/18 17:17 Discontinued 1 syr IVF PRN PRN 0.9 % Sodium Chloride [Saline Flush] MEDS 05/03/18 17:17 Discontinued 1 syr IVF PRN PRN Hydroxyzine HCl [Vistaril Inj] MEDS 05/03/18 19:22 Discontinued 25 mg IM ONCE STA Ketorolac Tromethamine [Toradol] MEDS 05/03/18 17:17 Discontinued 30 mg IM ONCE STA Nalbuphine HCl [Nubain] MEDS 05/03/18 19:21 Discontinued 10 mg IM ONCE STA Ondansetron HCl/Pf [Zofran 4 mg/2 ml] MEDS 05/03/18 17:17 Discontinued 4 mg IVP ONCE STA Sodium Chloride 0.9% [Sodium Chloride] 1,000 ml MEDS 05/03/18 17:[address] ABD/PEL WO RENAL STONE PROT Stat RADS 05/03/18 17:14 Completed Medications Discontinued Medications Generic Name Dose Route Start Last Admin Trade Name Freq PRN Reason Stop Dose Admin Hydroxyzine HCl 25 mg 05/03/18 19:22 05/03/18 19:32 Vistaril Inj IM 05/03/18 19:23 25 mg ONCE STA Administration Sodium Chloride 1,000 mls @ 1,000 mls/hr 05/03/18 17:17 05/03/18 17:40 Sodium Chloride IV 05/03/18 18:16 1,000 mls/hr BOLUS STA Administration Ketorolac Tromethamine 30 mg 05/03/18 17:17 05/03/18 17:42 Toradol IM 05/03/18 17:18 Not Given ONCE STA Nalbuphine HCl 10 mg 05/03/18 19:21 05/03/18 19:32 Nubain IM 05/03/18 19:22 10 mg ONCE STA Administration Ondansetron HCl 4 mg 05/03/18 17:17 Zofran 4 Mg/2 Ml IVP 05/03/18 17:18 ONCE STA Sodium Chloride 1 syr 05/03/18 17:17 05/03/18 17:40 Saline Flush IVF 1 syr PRN PRN Administration To flush IV Sodium Chloride 1 syr 05/03/18 17:17 Saline Flush IVF PRN PRN To flush IV Vital Signs: Temp Pulse Resp BP Pulse Ox 05/03/18 16:50 97.9 F 107 H 20 141/78 H 96 Departure - Departure Time of Disposition: 19:20 Disposition: HOME SELF-CARE Discharge Problem: Lumbar spine pain, Calculus of renal pelvis, Nausea vomiting and diarrhea Instructions: Kidney Stones (ED), Back Pain (ED), Lower Back Exercises (ED) Condition: Good Pt referred to PMD for follow-up: Yes (1 wk ,) IPMP verified?: No Additional Instructions: Take Zofran for nausea and vomiting Clear liquid diet See PCP next week for referral regarding renal stone Continue analgesics for relief of low back pain Allergies/Adverse Reactions: Allergies venom-honey bee [bee venom (honey bee)] Allergy (Severe, Verified 05/03/18 16:57 ) throat swelling venom-wasp [wasp venom] Allergy (Severe, Verified 05/03/18 16:57) throat swelling Iodinated Contrast- Oral and IV Dye [Iodinated Contrast Media - IV Dye] Adverse Reaction (Mild, Verified 05/03/18 16:57) SKIN REDDENED 1-11-07 states she has had a contrast study since the skin reddened episode and did just fine. She also stated she is on Benadryl daily as a "cocktail that Dr. Yeager has ordered". TCrumble,TUBE COVERER dihydroergotamine Adverse Reaction (Verified 02/07/17 21:27) ketorolac tromethamine [From Toradol] Adverse Reaction (Verified 05/03/18 16:57) morphine Adverse Reaction (Verified 05/03/18 16:57) ondansetron HCl [From Zofran] Adverse Reaction (Verified 05/03/18 16:57) sumatriptan [From Imitrex] Adverse Reaction (Verified 05/03/18 16:57) sumatriptan succinate [From Imitrex] Adverse Reaction (Verified 05/03/18 16:57) onions Allergy (Severe, Uncoded 02/07/17 21:27) swelling of throat Pt notified to get medical alert necklace Home Medications: Ambulatory Orders Pregabalin [Lyrica] 150 mg PO TID 12/07/12 Albuterol Sulfate [Proair Hfa] 2 puff IH Q6H PRN 06/09/14 Buspirone HCl 15 mg PO BID 09/19/14 Fluoxetine HCl [Prozac] 40 mg PO DAILY 09/19/14 Oxcarbazepine [Trileptal] 600 mg PO BID 12/23/15 Oxycodone HCl [Oxycodone] 5 mg PO QID 12/23/15 Chlorpromazine HCl [Thorazine] 25 mg PO BEDTIME 01/13/16 Diphenhydramine HCl [Benadryl Allergy] 25 mg PO BEDTIME 01/13/16 Promethazine HCl [Phenergan Tab] 25 mg PO BEDTIME 01/13/16 Tizanidine HCl [Zanaflex] 4 mg PO TID 12/30/17 Disposition Discussed With: Patient, Family
[2018-05-03] MEDS ORDERED: PEPCID IVP SCH (17:30)
[2018-05-03 17:40] LABS: URINE PREGNANCY TEST NEGATIVE (NEGATIVE)
--- NOTE | 2018-05-03 18:21 | CT ---
EXAM: CT of the abdomen pelvis without contrast History: Right flank pain, abdominal pain. Comparison: CT abdomen pelvis 02/07/2017 Technique: Multiplanar CT images through the abdomen pelvis were obtained without the administration of IV contrast Findings: Subsegmental atelectasis seen within the lower lungs. No acute osseous abnormalities. Status post cholecystectomy. The liver is enlarged measuring 22 cm in length. Spleen is unremarkabl e. The 8 mm calculus within the right renal pelvis. There is no hydronephrosis. No ureteral calcul i. No bowel obstruction. Bladder is not well distended. No focal bladder wall thickening. No free air and no ascites. Previous appendectomy. Scattered colonic stool. Bilateral fallopian tube occl usion devices. No perirectal inflammation. Small fat-containing umbilical hernia. Impression: 1. 8 mm calculus within the right renal pelvis. No hydronephrosis. 2. Hepatomegaly
[2018-05-03] MEDS ORDERED: NUBAIN IM STA (19:21)
[2018-05-03] MEDS ORDERED: VISTARIL INJ IM STA (19:22)
== END 2018-05-03 19:50 | disposition home or self-care (01) ==
LOC: ED 16:50
DX: M54.5 Low back pain (principal); N20.0 Calculus of kidney; R11.2 Nausea with vomiting, unspecified; R19.7 Diarrhea, unspecified; Z87.442 Personal history of urinary calculi; F17.210 Nicotine dependence, cigarettes, uncomplicated
CPT/HCPCS: 36415; 74176; 80053; 81001; 81025; 83690; 83735; 85025; 87086; 93005; 93010; 96372; 99283

== ENCOUNTER 2018-11-22 11:12 | Emergency (ER) | payer OTHER ==
[2018-11-22 11:21] VITALS: BP 139/90; TEMP 97.5; BMI 43.6
[2018-11-22 12:40] LABS: URINE PREGNANCY TEST NEGATIVE (NEGATIVE)
--- NOTE | 2018-11-22 12:59 | ED.PDOC ---
General ED Provider: Dr. DEJAN CORTES Chief Complaint: Abdominal Pain Stated Complaint: Pain - 3 or 4 days gradual then worse R flank to groin - sharp , stabbing. Today has had nausea and vomiting and diarrheal. Believes pain is from stones Time Seen by Physician: 12:45 Mode of Arrival: Walk-In Information Source: Patient Exam Limitations: No limitations Primary Care Provider: STANLEY CABRERA Nursing and Triage Documentation Reviewed and Agree: Yes Does patient meet sepsis criteria?: No System Inflammatory Response Syndrome: Not Applicable Sepsis Protocol: For patient's 13 years and over: Temp is 96.8 and below OR 101 and greater Pulse >90 BPM Resp >20/minute Acutely Altered Mental Status Are patient's symptoms suggestive of a new infection, such as: -Pneumonia -Skin, Soft Tissue -Endocarditis -UTI -Bone, Joint Infection -Implantable Device -Acute Abdominal Infection -Wound Infection -Meningitis -Blood Stream Catheter Infection -Unknown Review of Systems - Review Of Systems Constitutional: Reports: No symptoms Respiratory: Reports: No symptoms Cardiac: Reports: No symptoms GI: Reports: Diarrhea, Nausea Skin: Reports: No symptoms All Other Systems: Reviewed and Negative Past Medical History - Past Medical History Previously Healthy: Yes Endocrine: Reports: None, Other (syncope hypoglycemia vertigo nausea) Cardiovascular: Reports: Hypertension, Other (loop recorder placed; syncope , hypoglycemia vertigo nausea) Respiratory: Reports: Asthma Hematological: Reports: None Gastrointestinal: Reports: None, Pancreatitis Genitourinary: Reports: Kidney stones (9 LITHOTRIPSIES ) Neuro/Psych: Reports: Migraine, Seizure, Anxiety, Depression, Bipolar Disorder Musculoskeletal: Reports: Back Pain Cancer: Reports: None Last Menstrual Period: 3 weeks Other Pertinent Past Medical History: BREAST REDUCTION/THROAT SWELLING WITH MORPHINE ABLE TO TAKE DEMEROL STADOL - Surgical History General Surgical History: Reports: Tubal ligation, Appendectomy, Cholecystectomy , Tonsillectomy, Adenoidectomy, Other (9 LITHOTRIPSIES, BREAST REDUCTION) - Family History Family History: Reports: Unknown - Social History Smoking Status: Current every day smoker, Heavy tobacco smoker Hx Substance Use: No Alcohol Screening: None - Immunizations Tetanus Shot up to Date: No Physical Exam - Physical Exam Appearance: Well-appearing Pain Distress: Mild Eyes: JACEK, EOMI Neck: Supple Respiratory: Airway patent, Breath sounds clear, Breath sounds equal Cardiovascular: RRR, Pulses normal GI/: Soft, Nontender, Bowel sounds normal Musculoskeletal: Normal strength, ROM intact Skin: Warm, Dry, Normal color Neurological: Sensation intact, Motor intact Psychiatric: Affect appropriate, Mood appropriate Critical Care Note - Critical Care Note Total Time (mins): 10 Course - Course Hematology/Chemistry: 11/22/18 13:12 11/22/18 13:12 Orders, Labs, Meds: Lab Review 11/22/18 11/22/18 11/22/18 11:50 11:50 13:12 WBC 6.14 RBC 4.27 Hgb 11.9 L Hct 36.6 L MCV 85.7 MCH 27.9 MCHC 32.5 RDW Coeff of Jeremy 13.8 Plt Count 171 Immature Gran % (Auto) 0.2 Neut % (Auto) 62.4 Lymph % (Auto) 30.9 [place] % (Auto) 3.9 Eos % (Auto) 2.3 Baso % (Auto) 0.3 Immature Gran # (Auto) 0.0 Neut # (Auto) 3.8 Lymph # (Auto) 1.9 [place] # (Auto) 0.2 L Eos # (Auto) 0.1 Baso # (Auto) 0.0 Sodium Potassium Chloride Carbon Dioxide Anion Gap BUN Creatinine Estimated GFR (MDRD) BUN/Creatinine Ratio Glucose Calcium Total Bilirubin AST ALT Alkaline Phosphatase Total Protein Albumin Globulin Albumin/Globulin Ratio Urine Color Yellow Urine Clarity Slightly Urine pH 5.0 Ur Specific [place] >=1.030 Urine Protein Negative Urine Glucose (UA) Trace Urine Ketones Negative Urine Blood Negative Urine Nitrite Negative Urine Bilirubin Negative Urine Urobilinogen 0.2 Ur Leukocyte Esterase Negative Ur Squamous Epith Cells 30-50 Urine Bacteria 2+ Urine Mucus 2+ Urine Test Negative 11/22/18 13:12 WBC RBC Hgb Hct MCV MCH MCHC RDW Coeff of Jeremy Plt Count Immature Gran % (Auto) Neut % (Auto) Lymph % (Auto) [place] % (Auto) Eos % (Auto) Baso % (Auto) Immature Gran # (Auto) Neut # (Auto) Lymph # (Auto) [place] # (Auto) Eos # (Auto) Baso # (Auto) Sodium 135.9 Potassium 4.43 Chloride 103.1 Carbon Dioxide 23.9 Anion Gap 13.33 BUN 11.1 Creatinine 0.67 Estimated GFR (MDRD) 99.00 BUN/Creatinine Ratio 16.56 Glucose 185.5 H Calcium 9.51 Total Bilirubin 0.35 AST 146.4 H ALT 122.4 H Alkaline Phosphatase 105.9 Total Protein 7.17 Albumin 4.24 Globulin 2.93 Albumin/Globulin Ratio 1.44 Urine Color Urine Clarity Urine pH Ur Specific [place] Urine Protein Urine Glucose (UA) Urine Ketones Urine Blood Urine Nitrite Urine Bilirubin Urine Urobilinogen Ur Leukocyte Esterase Ur Squamous Epith Cells Urine Bacteria Urine Mucus Urine Test Orders Category Date Time Status CBC W/ AUTO DIFF Stat LAB 11/22/18 13:12 Completed COMPREHENSIVE METABOLIC PANEL Stat LAB 11/22/18 13:12 Completed URINALYSIS C & S IF INDICATED Stat LAB 11/22/18 11:50 Completed URINE CULTURE Stat LAB 11/22/18 11:50 Received URINE Stat LAB 11/22/18 11:50 Completed Ondansetron HCl/Pf [Zofran 4 mg/2 ml] MEDS 11/22/18 13:02 Discontinued 4 mg IVP ONCE STA Sodium Chloride 0.9% [Sodium Chloride] 1,000 ml MEDS 11/22/18 13:01 Discontinued IV BOLUS Medications Discontinued Medications Generic Name Dose Route Start Last Admin Trade Name Freq PRN Reason Stop Dose Admin Sodium Chloride 1,000 mls @ 1,000 mls/hr 11/22/18 13:01 Sodium Chloride IV 11/22/18 14:00 BOLUS STA Ondansetron HCl 4 mg 11/22/18 13:02 Zofran 4 Mg/2 Ml IVP 11/22/18 13:03 ONCE STA Vital Signs: Temp Pulse Resp BP Pulse Ox 11/22/18 11:12 97.5 F L 102 H 16 139/90 95 Departure - Departure Time of Disposition: 14:30 Disposition: AMA Discharge Problem: Gastroenteritis Instructions: Gastroenteritis in Children (DC) Condition: Good Pt referred to PMD for follow-up: Yes IPMP verified?: No Allergies/Adverse Reactions: Allergies venom-honey bee [bee venom (honey bee)] Allergy (Severe, Verified 05/03/18 16:57 ) throat swelling venom-wasp [wasp venom] Allergy (Severe, Verified 05/03/18 16:57) throat swelling Iodinated Contrast- Oral and IV Dye [Iodinated Contrast Media - IV Dye] Adverse Reaction (Mild, Verified 05/03/18 16:57) SKIN REDDENED 1-5-18 states she has had a contrast study since the skin reddened episode and did just fine. She also stated she is on Benadryl daily as a "cocktail that Dr. Yeager has ordered". TCrumbELISSA stallworth dihydroergotamine Adverse Reaction (Verified 02/07/17 21:27) ketorolac tromethamine [From Toradol] Adverse Reaction (Verified 05/03/18 16:57) morphine Adverse Reaction (Verified 05/03/18 16:57) ondansetron HCl [From Zofran] Adverse Reaction (Verified 05/03/18 16:57) sumatriptan [From Imitrex] Adverse Reaction (Verified 05/03/18 16:57) sumatriptan succinate [From Imitrex] Adverse Reaction (Verified 05/03/18 16:57) onions Allergy (Severe, Uncoded 02/07/17 21:27) swelling of throat Pt notified to get medical alert necklace Home Medications: Ambulatory Orders Pregabalin [Lyrica] 150 mg PO TID 12/07/12 Albuterol Sulfate [Proair Hfa] 2 puff IH Q6H PRN 06/09/14 Buspirone HCl 15 mg PO BID 09/19/14 Fluoxetine HCl [Prozac] 40 mg PO DAILY 09/19/14 Oxcarbazepine [Trileptal] 600 mg PO BID 12/23/15 Oxycodone HCl [Oxycodone] 5 mg PO QID 12/23/15 Chlorpromazine HCl [Thorazine] 25 mg PO BEDTIME 01/13/16 Diphenhydramine HCl [Benadryl Allergy] 25 mg PO BEDTIME 01/13/16 Promethazine HCl [Phenergan Tab] 25 mg PO BEDTIME 01/13/16 Tizanidine HCl [Zanaflex] 4 mg PO TID 12/30/17
[2018-11-22] MEDS ORDERED: SODIUM CHLORIDE 1,000 ML IV STA (13:01)
[2018-11-22] MEDS ORDERED: ZOFRAN 4 MG/2 ML IVP STA (13:02)
== END 2018-11-22 14:09 | disposition left against medical advice (07) ==
LOC: ED 11:12
DX: K52.9 Noninfective gastroenteritis and colitis, unspecified (principal); F17.210 Nicotine dependence, cigarettes, uncomplicated; Z87.442 Personal history of urinary calculi; Z79.899 Other long term (current) drug therapy
CPT/HCPCS: 36415; 80053; 81001; 81025; 85025; 87086; 99282

== ENCOUNTER 2019-02-26 12:10 | Outpatient (CLI) | payer OTHER ==
[2012-12-08 12:43] VITALS: TEMP 97.6
== END 2019-02-26 12:11 | disposition home or self-care (01) ==
LOC: RHC-LAB 12:10
PROVIDERS: ATTEND Nurse Practitioner Family
DX: E11.9 Type 2 diabetes mellitus without complications (principal); I10 Essential (primary) hypertension; E66.01 Morbid (severe) obesity due to excess calories; E78.5 Hyperlipidemia, unspecified; E78.1 Pure hyperglyceridemia
CPT/HCPCS: 36415; 80053; 80061; 83036; 84443; 85025